=== PATIENT | male | born 1990 | race Caucasian/White ===

== ENCOUNTER 2018-02-25 02:15 | Observation (INO) | payer OTHER, SELFPAY ==
[2018-02-25] MEDS ORDERED: MORPHINE 4 MG/ML SYR ONE ×2 (02:43→05:33)
[2018-02-25] MEDS ORDERED: NA CHLORIDE 0.9% 1,000 ML ONE (02:44)
[2018-02-25] MEDS ORDERED: ONDANSETRON 4 MG/2 ML VIAL ONE ×2 (02:44→05:27)
[2018-02-25] MEDS ORDERED: PANTOPRAZOLE 40 MG INJ ONE (02:44)
[2018-02-25 03:30] LABS: Absolute Lymphocytes (CBC) 1.1 K/uL (0.7-4.9); Absolute Monocytes 0.4 K/uL (0.1-1.3); Absolute Neutrophil 11.8 K/uL (1.8-8.0); Basophils % 0.5 % (0-1.3); Eosinophils % 0.1 % (0-4.4); Hematocrit 40.9 % (39.6-49.0); Lymphocytes % 8.4 % (15.3-44.8); MCH 34.5 pg (27.0-35.0); MCV 96.9 fL (80-100); MPV 7.8 fL (7.6-11.3); Monocytes % 3.1 % (3.3-12.3); RBC Red Blood Cell Count 4.22 M/uL (4.33-5.43)
[2018-02-25 03:31] LABS: Protime INR 1.18
[2018-02-25 03:50] LABS: ALT/SGPT 24 U/L (12-78); AST/SGOT 14 U/L (15-37); Albumin 4.7 g/dL (3.4-5.0); Alkaline Phosphatase 54 U/L (45-117); BUN Blood Urea Nitrogen 16 mg/dL (7-18); Bicarbonate 25 mmol/L (21-32); Bilirubin Direct 0.2 mg/dL (0-0.2); Bilirubin Total 0.6 mg/dL (0.2-1.0); Glucose Level 195 mg/dL (74-106); Lipase 72 U/L (73-393); Magnesium 1.9 mg/dL (1.8-2.4); NT PRO-BNP 21 pg/mL (<125); Potassium 3.4 mmol/L (3.5-5.1); Protein, Total 8.4 g/dL (6.4-8.2); Sodium Level 141 mmol/L (136-145); Troponin (Emerg Dept Use Only) < 0.02 ng/mL (0.0-0.045)
[2018-02-25] MEDS ORDERED: NS KCL 20MEQ 1,000 ML IV ONE (04:39)
[2018-02-25 05:08] LABS: Barbiturates NEGATIVE (NEGATIVE); Benzodiazepines NEGATIVE (NEGATIVE); Cocaine NEGATIVE (NEGATIVE); METHAMPHETAM NEGATIVE (NEGATIVE); Methadone NEGATIVE (NEGATIVE); Opiates POSITIVE (NEGATIVE); Phencyclidine NEGATIVE (NEGATIVE); THC Cannibis POSITIVE (NEGATIVE)
[2018-02-25 05:28] LABS: Blood Morphology Comment NOT SEEN (NOT SEEN); Platelet Estimate ADEQ
--- NOTE | 2018-02-25 06:03 | EDPHYS ---
Physician Documentation [facility] Name: Pratik Seth Age: 28 yrs Sex: Male : 1990 Arrival Date: 02/25/2018 Time: 02:16 Bed 15 Private MD: ED Physician Hever Ware HPI: 02/25 02:31 This 28 yrs old Male presents to ER via Ambulatory with complaints of Chest rosie Pain, Vomiting. 02:31 The patient or guardian reports chest pain that is located primarily in the anterior rosie chest wall, bilaterally. Historical: - Allergies: 02:53 Naproxen; cc3 - Home Meds: 02:53 None [Active]; cc3 - PMHx: 02:53 Anxiety; Back pain; Kidney stones; cc3 - PSHx: 02:53 Appendectomy; cc3 - Immunization history:: Adult Immunizations not up to date. - Social history:: Smoking status: Patient uses tobacco products, cigars. - Family history:: not pertinent. - Ebola Screening: : No symptoms or risks identified at this time. ROS: 02:31 Constitutional: Negative for fever, chills, and weight loss, Eyes: Negative for injury, rosie pain, redness, and discharge, ENT: Negative for injury, pain, and discharge, Neck: Negative for injury, pain, and swelling, Respiratory: Negative for shortness of breath, cough, wheezing, and pleuritic chest pain, Back: Negative for injury and pain, : Negative for injury, bleeding, discharge, and swelling, MS/Extremity: Negative for injury and deformity, Skin: Negative for injury, rash, and discoloration, Neuro: Negative for headache, weakness, numbness, tingling, and seizure, Psych: Negative for depression, anxiety, suicide ideation, homicidal ideation, and hallucinations, Allergy/Immunology: Negative for hives, rash, and allergies, Endocrine: Negative for neck swelling, polydipsia, polyuria, polyphagia, and marked weight changes, Hematologic/Lymphatic: Negative for swollen nodes, abnormal bleeding, and unusual bruising. 02:31 Cardiovascular: Positive for 02:31 Respiratory: Positive for cough. 02:31 Abdomen/GI: Positive for abdominal pain, nausea and vomiting, of the epigastric area, right upper quadrant and left upper quadrant. Exam: 02:31 Constitutional: This is a well developed, well nourished patient who is awake, alert, rosie and in no acute distress. Head/Face: Normocephalic, atraumatic. Eyes: Pupils equal round and reactive to light, extra-ocular motions intact. Lids and lashes normal. Conjunctiva and sclera are non-icteric and not injected. Cornea within normal limits. Periorbital areas with no swelling, redness, or edema. ENT: Nares patent. No nasal discharge, no septal abnormalities noted. Tympanic membranes are normal and external auditory canals are clear. Oropharynx with no redness, swelling, or masses, exudates, or evidence of obstruction, uvula midline. Mucous membranes moist. Neck: Trachea midline, no thyromegaly or masses palpated, and no cervical lymphadenopathy. Supple, full range of motion without nuchal rigidity, or vertebral point tenderness. No Meningismus. Chest/axilla: Normal chest wall appearance and motion. Nontender with no deformity. No lesions are appreciated. Cardiovascular: Regular rate and rhythm with a normal S1 and S2. No gallops, murmurs, or rubs. Normal PMI, no JVD. No pulse deficits. Respiratory: Lungs have equal breath sounds bilaterally, clear to auscultation and percussion. No rales, rhonchi or wheezes noted. No increased work of breathing, no retractions or nasal flaring. Back: No spinal tenderness. No costovertebral tenderness. Full range of motion. Male : Normal genitalia with no discharge or lesions. Skin: Warm, dry with normal turgor. Normal color with no rashes, no lesions, and no evidence of cellulitis. MS/ Extremity: Pulses equal, no cyanosis. Neurovascular intact. Full, normal range of motion. Neuro: Awake and alert, GCS 15, oriented to person, place, time, and situation. Cranial nerves II-XII grossly intact. Motor strength 5/5 in all extremities. Sensory grossly intact. Cerebellar exam normal. Normal gait. Psych: Awake, alert, with orientation to person, place and time. Behavior, mood, and affect are within normal limits. 02:31 Abdomen/GI: Inspection: abdomen appears normal, Bowel sounds: normal, Palpation: mild abdominal tenderness, moderate abdominal tenderness, in the epigastric area, right upper quadrant and left upper quadrant. Vital Signs: 02:18 BP 160 / 122; Pulse 96; Resp 21 S; Temp 98.8(O); Pulse Ox 98% on R/A; Weight 63.5 kg; cc3 Height 5 ft. 11 in. (180.34 cm); Pain 03/02; 03:48 BP 130 / 83 LA Supine (auto/reg); Pulse 66 MON; Resp 20 S; Pulse Ox 97% on R/A; Pain ds4 12/31; 04:30 BP 147 / 87; Pulse 86; Resp 18 S; Pulse Ox 100% on R/A; cc3 05:40 BP 160 / 96; Pulse 84; Resp 19 S; Pulse Ox 100% on R/A; cc3 06:05 BP 154 / 98; Pulse 66; Resp 19 S; Pulse Ox 99% on R/A; cc3 02:18 Body Mass Index 19.52 (63.50 kg, 180.34 cm) cc3 MDM: 02:25 Patient medically screened. [facility] 02:33 Data reviewed: vital signs, nurses notes, lab test result(s), EKG, radiologic studies, [facility] CT scan, plain films. 02/25 02:30 Order name: Basic Metabolic Panel; Complete Time: 04:21 rosie 02/25 02:30 Order name: CBC with Diff; Complete Time: 05:57 rosie 02/25 02:30 Order name: LFT's; Complete Time: 04:21 rosie 02/25 02:30 Order name: Magnesium; Complete Time: 04:21 rosie 02/25 02:30 Order name: NT PRO-BNP; Complete Time: 04:21 orsie 02/25 02:30 Order name: PT-INR; Complete Time: 04:21 rosie 02/25 02:30 Order name: Troponin (emerg Dept Use Only); Complete Time: 04:21 rosie 02/25 02:30 Order name: Lipase; Complete Time: 04:21 rosie 02/25 02:33 Order name: UDS; Complete Time: 05:57 rosie 02/25 03:32 Order name: Manual Differential; Complete Time: 05:57 EDMS 02/25 04:42 Order name: Urine Dipstick--Ancillary (enter results) ds4 02/25 06:08 Order name: CBC with Automated Diff EDMS 02/25 06:08 Order name: CBC with Automated Diff EDMS 02/25 06:08 Order name: Comprehensive Metabolic Panel EDMS 02/25 02:30 Order name: XRAY Chest (1 view) [facility] 02/25 02:30 Order name: EKG; Complete Time: 02:31 [facility] 02/25 02:30 Order name: Cardiac monitoring; Complete Time: 02:48 [facility] 02/25 02:31 Order name: CT Abd/Pelvis - W/Contrast [facility] 02/25 05:57 Order name: US Abdomen Limited [facility] 02/25 06:05 Order name: CONS Physician Consult [facility] 02/25 06:08 Order name: NPO [facility] 02/25 06:08 Order name: Comprehensive Metabolic Panel [facility] 02/25 06:08 Order name: Blood Culture [facility] 02/25 02:30 Order name: EKG - Nurse/Tech; Complete Time: 02:34 [facility] 02/25 02:30 Order name: IV Saline Lock; Complete Time: 02:49 [facility] 02/25 02:30 Order name: Labs collected and sent; Complete Time: 02:49 [facility] 02/25 02:30 Order name: O2 Per Protocol; Complete Time: 02:49 [facility] 02/25 02:30 Order name: O2 Sat Monitoring; Complete Time: 02:50 [facility] Administered Medications: 02:35 Drug: NS 0.9% 1000 ml Route: IV; Rate: 1 bolus; Site: right antecubital; cc3 04:00 Follow up: Response: No adverse reaction; IV Status: Completed infusion; IV Intake: cc3 1000ml 02:38 Drug: Zofran 4 mg Route: IVP; Site: right antecubital; cc3 03:50 Follow up: Response: No adverse reaction; Nausea is decreased; Vomiting decreased cc3 02:41 Drug: morphine 4 mg Route: IVP; Site: right antecubital; cc3 03:51 Follow up: Response: No adverse reaction; Pain is decreased cc3 02:44 Drug: ProTONIX 40 mg Route: IVP; Site: right antecubital; cc3 03:51 Follow up: Response: No adverse reaction; Pain is decreased cc3 04:30 Drug: NS 0.9% with KCl 20 mEq/L 1000 ml Route: IV; Rate: 125 ml/hr; Site: right cc3 antecubital; 06:30 Follow up: Response: No adverse reaction; IV Status: Infusion continued upon admission cc3 05:23 Drug: Zofran 4 mg Route: IVP; Site: right antecubital; cc3 05:55 Follow up: Response: No adverse reaction; Nausea is decreased; Vomiting decreased cc3 05:27 Drug: morphine 4 mg Route: IVP; Site: right antecubital; cc3 05:55 Follow up: Response: No adverse reaction; Pain is decreased cc3 Disposition: 02/25/18 06:02 Hospitalization ordered by Suma Benjamin for Observation. Preliminary diagnosis are Chest pain, unspecified, Abdominal tenderness - intractable, Vomiting. - Bed requested for Telemetry/MedSurg (observation). - Status is Observation. cc3 - Condition is Stable. - Problem is new. - Symptoms have improved. UTI on Admission? No Signatures: Dispatcher [employer] EDMS Hever Ware MD MD cha Solis, Maria ms Cordel, Charlene 3 Corrections: (The following items were deleted from the chart) 02:55 02:18 Social history: Smoking status: unknown 3 3 04:26 02:53 PSHx: None; 3 3 05:46 02:53 Allergies: NKDA; 3 cc3 05:46 02:53 Allergies: Naproxen [Inactive]; 3 cc3 06:13 06:02 Hospitalization Ordered by Suma Benjamin MD for Observation. Preliminary ms diagnosis is Chest pain, unspecified; Abdominal tenderness - intractable; Vomiting. Bed requested for Telemetry/MedSurg (observation). Status is Observation. Condition is Stable. Problem is new. Symptoms have improved. UTI on Admission? No. [facility] 06:44 06:13 02/25/2018 06:02 Hospitalization Ordered by Suma Benjamin MD for Observation. 3 Preliminary diagnosis is Chest pain, unspecified; Abdominal tenderness - intractable; Vomiting. Bed requested for Telemetry/MedSurg (observation). Status is Observation. Condition is Stable. Problem is new. Symptoms have improved. UTI on Admission? No. ms
--- NOTE | 2018-02-25 06:03 | ER ---
Nurse's Notes [facility] Name: Pratik Seth Age: 28 yrs Sex: Male : 1990 Arrival Date: 02/25/2018 Time: 02:16 Bed 15 Private MD: Diagnosis: Chest pain, unspecified;Abdominal tenderness-intractable;Vomiting Presentation: 02/25 02:18 Presenting complaint: Patient states: chest pain and vomiting since 3 hours back after cc3 eating pork chop. Transition of care: patient was not received from another setting of care. Onset of symptoms was February 24, 2018. Risk Assessment: Do you want to hurt yourself or someone else? Patient reports no desire to harm self or others. Initial Sepsis Screen: Does the patient meet any 2 criteria? No. Patient's initial sepsis screen is negative. Does the patient have a suspected source of infection? No. Patient's initial sepsis screen is negative. Care prior to arrival: None. 02:18 Method Of Arrival: Ambulatory cc3 02:18 Acuity: FLORIAN 3 cc3 Triage Assessment: 02:18 General: Appears distressed, uncomfortable, Behavior is calm, cooperative, appropriate cc3 for age. Pain: Complains of pain in left upper quadrant and right upper quadrant and epigastric area Pain currently is 10 out of 10 on a pain scale. Quality of pain is described as aching, Pain began 3 hours ago prior to consult. EENT: No signs and/or symptoms were reported regarding the EENT system. Neuro: Level of Consciousness is awake, alert, obeys commands, Oriented to person, place, time, situation, Appropriate for age. Cardiovascular: Reports chest pain, since 3 hours ago prior to consult. Respiratory: Airway is patent Respiratory effort is even, unlabored, Respiratory pattern is regular, symmetrical. GI: Reports upper abdominal pain, cramping, epigastric pain, vomiting, since 3 hours back prior to consult. : No signs and/or symptoms were reported regarding the genitourinary system. Derm: No signs and/or symptoms reported regarding the dermatologic system. Musculoskeletal: Circulation, motion, and sensation intact. Range of motion: intact in all extremities. Historical: - Allergies: 02:53 Naproxen; cc3 - Home Meds: 02:53 None [Active]; cc3 - PMHx: 02:53 Anxiety; Back pain; Kidney stones; cc3 - PSHx: 02:53 Appendectomy; cc3 - Immunization history:: Adult Immunizations not up to date. - Social history:: Smoking status: Patient uses tobacco products, cigars. - Family history:: not pertinent. - Ebola Screening: : No symptoms or risks identified at this time. Screenin:18 Abuse screen: Denies threats or abuse. Denies injuries from another. Nutritional cc3 screening: No deficits noted. Tuberculosis screening: No symptoms or risk factors identified. Fall Risk Ambulatory Aid- None/Bed Rest/Nurse Assist (0 pts). Gait- Normal/Bed Rest/Wheelchair (0 pts) Mental Status- Oriented to own ability (0 pts). Assessment: 02:20 General: see triage note. cc3 02:20 Pain: Pain does not radiate. cc3 03:30 Reassessment: Patient appears in no apparent distress at this time. Patient and/or cc3 family updated on plan of care and expected duration. Pain level reassessed. Patient is alert, oriented x 3, equal unlabored respirations, skin warm/dry/pink. Patient still cannot take the oral contrast and feels vomiting whenever he tries to, informed Dr. Ware and he said no need to give the oral contrast and just do the plain CT scan of the abdomen. Informed Dr. Ware regarding the patient's ECG SV rhythm and he said he saw the 12-L ECG that was done for the patient and he said the patient's fine. Informed charge nurse Rupa regarding Dr. Ware's plan for CT scan abdomen without giving the oral contrast and charge nurse Rupa informed the CT scan department. 04:00 Reassessment: Patient appears in no apparent distress at this time. Patient and/or cc3 family updated on plan of care and expected duration. Pain level reassessed. Patient is alert, oriented x 3, equal unlabored respirations, skin warm/dry/pink. Patient taken by social service technician for CT scan abdomen/pelvis procedure. 04:20 Reassessment: Patient appears in no apparent distress at this time. Patient and/or cc3 family updated on plan of care and expected duration. Pain level reassessed. Patient is alert, oriented x 3, equal unlabored respirations, skin warm/dry/pink. Patient came back from CT scan department, CT scan abdomen/pelvis done as ordered, awaiting for final report. 05:39 Reassessment: Patient appears in no apparent distress at this time. Patient and/or cc3 family updated on plan of care and expected duration. Pain level reassessed. Patient is alert, oriented x 3, equal unlabored respirations, skin warm/dry/pink. 06:00 Reassessment: Dr. Walker came and assessed the patient. cc3 06:05 Reassessment: Patient for admission as a case of chest pain unspecified, admission cc3 process ongoing. 06:30 Reassessment: Bed assigned in room 203, called extension [id number] and report handed over to cc3 RN Lilo Avila for continuity of care and management. 06:35 Reassessment: Patient appears in no apparent distress at this time. Patient and/or cc3 family updated on plan of care and expected duration. Pain level reassessed. Patient is alert, oriented x 3, equal unlabored respirations, skin warm/dry/pink. Patient left ER for admission vitally stable by wheelchair escorted by coroner forensic techniciancale Wilson. Vital Signs: 02:18 BP 160 / 122; Pulse 96; Resp 21 S; Temp 98.8(O); Pulse Ox 98% on R/A; Weight 63.5 kg; cc3 Height 5 ft. 11 in. (180.34 cm); Pain 10/10; 03:48 BP 130 / 83 LA Supine (auto/reg); Pulse 66 MON; Resp 20 S; Pulse Ox 97% on R/A; Pain ds4 8/10; 04:30 BP 147 / 87; Pulse 86; Resp 18 S; Pulse Ox 100% on R/A; cc3 05:40 BP 160 / 96; Pulse 84; Resp 19 S; Pulse Ox 100% on R/A; cc3 06:05 BP 154 / 98; Pulse 66; Resp 19 S; Pulse Ox 99% on R/A; cc3 02:18 Body Mass Index 19.52 (63.50 kg, 180.34 cm) 3 ED Course: 02:16 Patient arrived in ED. do 02:18 Arm band placed on right wrist. cc3 02:18 Patient has correct armband on for positive identification. Bed in low position. Call cc3 light in reach. Side rails up X 1. library monitor on. Pulse ox on. NIBP on. 02:20 Patient maintains SpO2 saturation greater than 95% on room air. cc3 02:22 Ya Murillo is Primary Nurse. cc3 02:24 Triage completed. cc3 02:25 Hever Ware MD is Attending Physician. rosie 02:25 Inserted saline lock: 20 gauge in right antecubital area, using aseptic technique. cc3 Blood collected. 02:50 Lipase Sent. ds4 02:50 Basic Metabolic Panel Sent. ds4 02:50 CBC with Diff Sent. ds4 02:50 LFT's Sent. ds4 02:50 Magnesium Sent. ds4 02:50 NT PRO-BNP Sent. ds4 02:51 PT-INR Sent. ds4 02:51 Troponin (emerg Dept Use Only) Sent. ds4 02:57 XRAY Chest (1 view) In Process Unspecified. EDMS 03:19 Lipase Sent. ds4 03:19 Basic Metabolic Panel Sent. ds4 03:19 CBC with Diff Sent. ds4 03:19 LFT's Sent. ds4 03:19 Magnesium Sent. ds4 03:20 NT PRO-BNP Sent. ds4 03:20 PT-INR Sent. ds4 03:20 Troponin (emerg Dept Use Only) Sent. ds4 03:34 Radiology exam delayed due to lab results not completed at this time. (BUN/Creatinine). jg6 03:34 Radiology exam delayed due to Patient has been unable to drink oral contrast due to jg6 severe nauseousness. Has been given medication for nausea but still unable to drink oral contrast. Dr. Ware has advised to complete exam using only IV contrast at this time. 03:45 Lipase Sent. ds4 03:45 Troponin (emerg Dept Use Only) Sent. ds4 03:46 NT PRO-BNP Sent. ds4 03:46 Magnesium Sent. ds4 03:46 LFT's Sent. ds4 03:46 Basic Metabolic Panel Sent. ds4 03:46 CBC with Diff Sent. ds4 03:49 Radiology exam delayed due to lab results not completed at this time. (BUN/Creatinine). jg6 04:[address] via wheelchair. kw1 04:11 CT completed. Patient tolerated procedure well. Patient moved back from CT. kw1 04:12 CT Abd/Pelvis - W/Contrast In Process Unspecified. EDMS 04:42 UDS Sent. ds4 04:47 Urine Dipstick--Ancillary (enter results) Sent. ds4 06:01 Suma Benjamin MD is Hospitalizing Provider. rosie 06:35 No provider procedures requiring assistance completed. Patient admitted, IV remains in cc3 place. Administered Medications: 02:35 Drug: NS 0.9% 1000 ml Route: IV; Rate: 1 bolus; Site: right antecubital; cc3 04:00 Follow up: Response: No adverse reaction; IV Status: Completed infusion; IV Intake: cc3 1000ml 02:38 Drug: Zofran 4 mg Route: IVP; Site: right antecubital; cc3 03:50 Follow up: Response: No adverse reaction; Nausea is decreased; Vomiting decreased cc3 02:41 Drug: morphine 4 mg Route: IVP; Site: right antecubital; cc3 03:51 Follow up: Response: No adverse reaction; Pain is decreased cc3 02:44 Drug: ProTONIX 40 mg Route: IVP; Site: right antecubital; cc3 03:51 Follow up: Response: No adverse reaction; Pain is decreased cc3 04:30 Drug: NS 0.9% with KCl 20 mEq/L 1000 ml Route: IV; Rate: 125 ml/hr; Site: right cc3 antecubital; 06:30 Follow up: Response: No adverse reaction; IV Status: Infusion continued upon admission cc3 05:23 Drug: Zofran 4 mg Route: IVP; Site: right antecubital; cc3 05:55 Follow up: Response: No adverse reaction; Nausea is decreased; Vomiting decreased cc3 05:27 Drug: morphine 4 mg Route: IVP; Site: right antecubital; cc3 05:55 Follow up: Response: No adverse reaction; Pain is decreased cc3 Intake: 04:00 IV: 1000ml; Total: 1000ml. cc3 Outcome: 06:02 Decision to Hospitalize by Provider. rosie 06:35 Admitted to Med/surg accompanied by tech, via wheelchair, room 203, with chart, Report cc3 called to LENNY Avila 06:35 Condition: stable 06:35 Instructed on the need for admit. 06:44 Patient left the ED. cc3 Signatures: Dispatcher [employer] Hever Macdonald MD MD cha Swanson, Donovan ds4 Amy Colunga Kimberly kw1 Ya Murillo cc3 Analisa Vicente [email or web address] Corrections: (The following items were deleted from the chart) 02:26 02:18 BP 160 / 122; Pulse 96bpm; Resp 21bpm; Spontaneous; Pulse Ox 98% RA; 63.5 kg; cc3 Height 5 ft. 11 in.; BMI: 19.5; cc3 02:55 02:18 Social history: Smoking status: unknown [facility] [email or web address] 04:06 03:25 Reassessment: Patient appears in no apparent distress at this time. Patient cc3 and/or family updated on plan of care and expected duration. Pain level reassessed. Patient is alert, oriented x 3, equal unlabored respirations, skin warm/dry/pink. Patient still cannot take the oral contrast and feels vomiting whenever he tries to, informed Dr. Ware and he said no need to give the oral contrast and just do the plain CT scan of the abdomen. Informed Dr. Ware regarding the patient's ECG SV rhythm and he said he saw the 12-L ECG that was done for the patient and he said the patient's fine. Informed charge nurse Rupa regarding Dr. Ware's plan for CT scan abdomen without giving the oral contrast and charge nurse Rupa informed the CT scan department. 3 04: 02:53 PSHx: None; [facility] [email or web address] 05:46 02:53 Allergies: NKDA; 3 3 05:46 02:53 Allergies: Naproxen [Inactive]; 3 3
[2018-02-25] MEDS ORDERED: SODIUM CHLORIDE 0.9% 10ML INJ IV PRN (06:05)
[2018-02-25 06:12] LABS: Urine Blood TRACE (NEG); Urine Glucose NEGATIVE (NEG); Urine Protein 1+ (NEG); Urine Specific Gravity 1.015 (1.005-1.030); Urine pH 7.5 (5.0-7.0)
--- NOTE | 2018-02-25 06:15 | P.HP ---
Certification for Inpatient Patient admitted to: Observation With expected LOS: <2 Midnights Practitioner: I am a practitioner with admitting privileges, knowledge of patient current condition, hospital course, and medical plan of care. Services: Services provided to patient in accordance with Admission requirements found in Title 42 Section 412.3 of the Code of Federal Regulations Patient History Date of Service: 02/25/18 Reason for admission: Abdominal pain History of Present Illness: Mr Seth is a 28-year-old male who came to ER complaining of severe abdominal pain. The pain is located in epigastric area, is 10/10 of intensity, associated subjective fever, nausea and vomiting. He also states that has had diarrhea a couple of times at home. He symptoms started last night after he had dinner. He denied any blood in stools or his vomiting. The pain is constant unknown not radiate anywhere. Lab work remarkable for leukocytosis 13.5 K and bands 2% . CT abdomen and pelvis shows no acute abnormalities. He has history of appendectomy in the past. UA shows no sign of acute infection. Allergies naproxen Allergy (Unverified 09/27/15 23:48) Unknown Home medications list reviewed: Yes Home Medications: Ciprofloxacin HCl [Cipro 500 MG Tablet] 500 mg PO BID #14 tablet 03/11/15 Metronidazole 500 mg PO TID #21 tablet 03/11/15 - Past Medical/Surgical History Diabetic: No -: wrist fx -: TIA with aphasia (12/05) -: R wrist fx -: appendectomy - Family History Mother -: Cancer Notes: lung cx - Social History Smoking Status: Current every day smoker Counseled patient to stop smoking for: less than 10 minutes Alcohol use: Yes CD- Drugs: No Caffeine use: Yes Place of Residence: Home Review of Systems 10-point ROS is otherwise unremarkable Physical Examination - Physical Exam General: Alert, Moderate distress (Due to abdominal pain) HEENT: Atraumatic, PERRLA, Mucous membr. moist/pink, EOMI, Sclerae nonicteric Neck: Supple, 2+ carotid pulse no bruit, No LAD, Without JVD or thyroid abnormality Respiratory: Clear to auscultation bilaterally, Normal air movement Cardiovascular: Regular rate/rhythm, Normal S1 S2 Gastrointestinal: Hypoactive, Tenderness (Epigastric area) Musculoskeletal: No tenderness Integumentary: No rashes Neurological: Normal speech, Normal strength at 5/5 x4 extr, Normal tone, Normal affect Lymphatics: No axilla or inguinal lymphadenopathy - Studies Laboratory Data (last 24 hrs) 02/25/18 03:10: PT 13.9 H, INR 1.18 02/25/18 03:10: WBC 13.5 H, Hgb 14.6, Hct 40.9, Plt Count 375 02/25/18 03:10: Sodium 141, Potassium 3.4 L, BUN 16, Creatinine 1.00, Glucose 195 H, Magnesium 1.9, Total Bilirubin 0.6, AST 14 L, ALT 24, Alkaline Phosphatase 54, Lipase 72 L Assessment and Plan - Problems (Diagnosis) (1) Abdominal pain Onset Date: 03/11/15 Current Visit: No Status: Acute Qualifiers: Abdominal location: epigastric Qualified Code(s): R10.13 - Epigastric pain (2) Nausea & vomiting Onset Date: 03/11/15 Current Visit: No Status: Acute Qualifiers: Vomiting type: unspecified Vomiting Intractability: intractable Qualified Code(s): R11.2 - Nausea with vomiting, unspecified - Plan The patient will be admitted to the hospital due to severe epigastric pain associated with nausea vomiting. He has leukocytosis with bandemia. However CT scan of abdomen and pelvis shows no acute abnormality. Will admit the patient for pain control, will order an abdominal ultrasound, consult surgery team for evaluation and recommendation. - Advance Directives Does patient have a Living Will: No Does patient have a Durable POA for Healthcare: No - Code Status/Comfort Care Code Status Assessed: Yes Code Status: Full Code
[2018-02-25] MEDS: NA CHLORIDE 0.9% 1,000 ML IV SCH ×2 (07:00→15:50)
[2018-02-25 07:03] VITALS: BMI 15.3
[2018-02-25] MEDS: PANTOPRAZOLE 40 MG INJ IVP SCH (08:21)
--- NOTE | 2018-02-25 08:38 | RAD REPORT ---
EXAM DESCRIPTION: CT - Abdomen Pelvis W Contrast - 02/25/2018 6:43 am CLINICAL HISTORY: Abdominal pain. And vomiting for 3 hours. COMPARISON: 2017 TECHNIQUE: Computed axial tomography of the abdomen and pelvis was obtained. 100 cc Isovue-300 is ad ministered intravenously. Oral contrast was given.Preliminary report generated by [employer] and reviewed prior to dictation All CT scans are performed using dose optimization technique as appropriate and may include automated exposure control or mA/KV adjustment according to patient size. FINDINGS: The liver, spleen, pancreas, adrenals and kidneys appear unremarkable. There is no evidence of diverticulitis The appendix is not seen IMPRESSION: No acute abnormality displayed
--- NOTE | 2018-02-25 08:38 | RAD REPORT ---
EXAM DESCRIPTION: Mere Single View02/25/2018 2:57 am CLINICAL HISTORY: Chest pain COMPARISON: 2014 FINDINGS: The lungs appear clear of acute infiltrate. The heart is normal size IMPRESSION: No acute abnormalities displayed
--- NOTE | 2018-02-25 08:45 | RAD REPORT ---
EXAM DESCRIPTION: US - Abdomen Exam Limited - 02/25/2018 7:08 am CLINICAL HISTORY: Abdominal pain. COMPARISON: None. FINDINGS: The gallbladder wall is not thickened. A gallstone is not seen. The biliary tree is normal caliber. IMPRESSION: Unremarkable gallbladder ultrasound.
[2018-02-25] MEDS ORDERED: METRONIDAZOLE 500mg IVPB 500 MG/100 ML BAG IV SCH (09:00)
[2018-02-25] MEDS ORDERED: CIPROFLOXACIN 400mg IV 400 MG/200 ML BAG IV SCH (09:00)
[2018-02-25] MEDS ORDERED: INFLUENZA VACCINE (for 3y+) 0.5 ML DOSE IMVAC ONE ×2 (11:00→22:18)
[2018-02-25] MEDS: MORPHINE 2 MG/ML SYR IV PRN ×3 (11:56→21:54)
[2018-02-25] MEDS: ONDANSETRON 4 MG/2 ML VIAL IV PRN ×2 (11:57→17:40)
[2018-02-25] MEDS ORDERED: MORPHINE 4 MG/ML SYR IV PRN (13:21)
--- NOTE | 2018-02-25 13:35 | P.CNS ---
Date of Consult: 02/25/18 PC: This 28-year-old male presents emergency room with severe abdominal pain for diagnosis and treatment. HPC: The patient states that the pain began yesterday. Located the middle portion of his abdomen. Very severe. Cause him to have dry heaves and vomiting. No diarrhea. PMH: Negative PSHx: Negative SOC: Allergic to Naprosyn SYS REVIEW: No cough, wheeze, shortness of breath. No chest pain or palpitations. No urinary complaints O/E awake alert very uncomfortable looking at the moment, vital signs are stable HEENT: Within normal limit Chest: Chest movement is equal bilaterally ABD: Abdomen is soft, nontender, no guarding. Patient however describes his abdomen as sore during exam. LOCO: Intact, no heel tap tenderness DATA: White cell count mildly elevate IMPRESSION: Abdominal pain, possible enteritis PLAN: This patient is not have a surgical abdomen at this time. I will increase his pain medicine as the patient is generally uncomfortable. Has received some antibiotics, will leave dosing to hospitalist, may benefit from p.o. antibiotics. Will follow with you.
[2018-02-25] MEDS ORDERED: TRAMADOL HCL 50 MG TAB PO PRN (15:38)
[2018-02-25] MEDS: HYDROCODONE/APAP 7.5/325 MG TAB PO PRN (15:49)
--- NOTE | 2018-02-25 16:25 | P.PN ---
Subjective Date of Service: 02/25/18 Primary Care Provider: None Chief Complaint: Abdominal pain Subjective: Other (Patient is slightly improved. Still with abdominal pain.) Physical Examination - Vital Signs Temperature: 99.2 F Blood Pressure: 117/73 Pulse: 77 Respirations: 18 Pulse Ox (%): 99 - Physical Exam General: Alert, In no apparent distress, Oriented x3, Cooperative HEENT: Atraumatic Neck: Supple Respiratory: Clear to auscultation bilaterally, Normal air movement Cardiovascular: Normal pulses, Regular rate/rhythm Gastrointestinal: Normal bowel sounds, Soft and benign, Non-distended, No masses , No rebound, No guarding, Tenderness (Mild tenderness to the epigastric region) Musculoskeletal: No erythema, No tenderness, No warmth Integumentary: No tenderness/swelling, No erythema, No warmth, No cyanosis Neurological: Normal speech, Normal strength at 5/5 x4 extr, Normal tone, Normal affect - Studies Laboratory Data (last 24 hrs) 02/25/18 03:10: PT 13.9 H, INR 1.18 02/25/18 03:10: WBC 13.5 H, Hgb 14.6, Hct 40.9, Plt Count 375 02/25/18 03:10: Sodium 141, Potassium 3.4 L, BUN 16, Creatinine 1.00, Glucose 195 H, Magnesium 1.9, Total Bilirubin 0.6, AST 14 L, ALT 24, Alkaline Phosphatase 54, Lipase 72 L Medications List Reviewed: Yes Assessment & Plan Discharge Plan: Home Plan to discharge in: 24 Hours Physician Review Additional Text: Impression: Nausea, vomiting and epigastric pain likely enteritis Positive drug screen for THC Plan: Nausea, vomiting and epigastric pain likely enteritis Positive drug screen for THC Will continue monitor closely. Will provide medication for nausea and pain. Will advance diet to clears. If more stable will advance diet to soft. Surgery consulted. Case discussed with surgery. No surgical intervention required. Will continue with Cipro and Flagyl. Will provide Protonix. Will reassess tomorrow. THC cessation education addressed in detail. Time Spent Managing Pts Care (In Minutes): 55
[2018-02-25] MEDS: METRONIDAZOLE 500mg IVPB 500 MG/100 ML BAG IV SCH (17:40)
[2018-02-25] MEDS ORDERED: POTASSIUM CL SA 10 MEQ TAB PO ONE (21:00)
[2018-02-25] MEDS: CIPROFLOXACIN 400mg IV 400 MG/200 ML BAG IV SCH (21:53)
[2018-02-25 23:10] VITALS: O2SAT 100
[2018-02-26] MEDS: METRONIDAZOLE 500mg IVPB 500 MG/100 ML BAG IV SCH ×3 (00:27→16:28)
[2018-02-26] MEDS: ONDANSETRON 4 MG/2 ML VIAL IV PRN ×3 (03:17→21:45)
[2018-02-26] MEDS: HYDROCODONE/APAP 7.5/325 MG TAB PO PRN (03:18)
[2018-02-26] MEDS: NA CHLORIDE 0.9% 1,000 ML IV SCH (03:18)
[2018-02-26 06:14] LABS: Absolute Lymphocytes (CBC) 2.1 K/uL (0.7-4.9); Absolute Monocytes 0.8 K/uL (0.1-1.3); Absolute Neutrophil 6.1 K/uL (1.8-8.0); Basophils % 0.6 % (0-1.3); Eosinophils % 1.8 % (0-4.4); Hematocrit 35.7 % (39.6-49.0); Lymphocytes % 22.3 % (15.3-44.8); MCH 34.8 pg (27.0-35.0); MCV 98.3 fL (80-100); Monocytes % 8.7 % (3.3-12.3); RBC Red Blood Cell Count 3.63 M/uL (4.33-5.43)
[2018-02-26 06:39] LABS: Albumin 3.6 g/dL (3.4-5.0); Bilirubin Total 0.6 mg/dL (0.2-1.0); Magnesium 2.2 mg/dL (1.8-2.4); Potassium 3.8 mmol/L (3.5-5.1); Protein, Total 6.6 g/dL (6.4-8.2)
--- NOTE | 2018-02-26 07:53 | EKG ---
Test Date: 2018-02-25 Test Time: 02:22:35 Room Cleaner: EVER MEASUREMENT RESULTS: Intervals: Rate: 83 ME: 142 QRSD: 80 QT: 372 QTc: 437 [place]: P: 74 ME: 142 QRS: 89 T: 76 INTERPRETIVE STATEMENTS: Normal sinus rhythm with sinus arrhythmia Normal ECG Compared to ECG 12/03/2014 07:23:49 Sinus bradycardia no longer present Atrial premature complex(es) no longer present Electronically Signed On 02-26-18 07:49:11 CDT by Rciky Pate
[2018-02-26] MEDS: CIPROFLOXACIN 400mg IV 400 MG/200 ML BAG IV SCH ×2 (08:04→21:46)
[2018-02-26] MEDS: PANTOPRAZOLE 40 MG INJ IVP SCH (08:04)
[2018-02-26] MEDS: MORPHINE 2 MG/ML SYR IV PRN ×3 (08:04→21:44)
--- NOTE | 2018-02-26 09:08 | P.PN ---
Subjective Date of Service: 02/26/18 Primary Care Provider: None Chief Complaint: Abdominal pain Subjective: Other (Patient improved. Pain to the abdomen is less. Patient tolerated clear liquids.) Physical Examination - Vital Signs Temperature: 98 F Blood Pressure: 125/62 Pulse: 58 Respirations: 18 Pulse Ox (%): 100 - Physical Exam General: Alert, In no apparent distress, Oriented x3, Cooperative HEENT: Atraumatic Neck: Supple Respiratory: Clear to auscultation bilaterally, Normal air movement Cardiovascular: Normal pulses, Regular rate/rhythm Gastrointestinal: Normal bowel sounds, Soft and benign, Non-distended, No masses , No rebound, No guarding, Tenderness (Pain to the epigastric region improved) Musculoskeletal: No erythema, No tenderness, No warmth Integumentary: No tenderness/swelling, No erythema, No warmth, No cyanosis Neurological: Normal speech, Normal strength at 5/5 x4 extr, Normal tone - Studies Medications List Reviewed: Yes Assessment & Plan Discharge Plan: Home Plan to discharge in: 24 Hours Physician Review Additional Text: Impression: Nausea, vomiting and epigastric pain likely enteritis Positive drug screen for THC Plan: Nausea, vomiting and epigastric pain likely enteritis Positive drug screen for THC Will advance diet to full liquid this morning. If improved will advance to soft. So far abdominal ultrasound and CT scan unremarkable. Case discussed with surgery yesterday. No surgical intervention required. Will continue with IV fluids, antibiotic therapy-Cipro and Flagyl. Patient also on Protonix. THC education cessation addressed in detail with the patient. Encourage ambulation. Anticipate discharge in the next 24 hr. Time Spent Managing Pts Care (In Minutes): 55
[2018-02-26] MEDS: NACHLORIDE 0.45% 1,000 ML IV SCH ×3 (10:00→21:46)
[2018-02-26] MEDS ORDERED: POTASSIUM CL SA 10 MEQ TAB PO ONE (14:00)
[2018-02-27] MEDS: METRONIDAZOLE 500mg IVPB 500 MG/100 ML BAG IV SCH ×2 (00:51→09:00)
[2018-02-27] MEDS: MORPHINE 2 MG/ML SYR IV PRN (04:25)
[2018-02-27] MEDS: ONDANSETRON 4 MG/2 ML VIAL IV PRN (04:25)
[2018-02-27] MEDS: NACHLORIDE 0.45% 1,000 ML IV SCH (05:58)
[2018-02-27 06:01] LABS: ALT/SGPT 18 U/L (12-78); AST/SGOT 12 U/L (15-37); Albumin 3.8 g/dL (3.4-5.0); Alkaline Phosphatase 44 U/L (45-117); BUN Blood Urea Nitrogen 5 mg/dL (7-18); Bicarbonate 29 mmol/L (21-32); Bilirubin Total 0.7 mg/dL (0.2-1.0); Glucose Level 92 mg/dL (74-106); Protein, Total 6.9 g/dL (6.4-8.2); Sodium Level 140 mmol/L (136-145)
[2018-02-27] MEDS ORDERED: PANTOPRAZOLE 40MG TABLET PO SCH (06:30)
[2018-02-27 07:48] LABS: Absolute Lymphocytes (CBC) 2.3 K/uL (0.7-4.9); Absolute Monocytes 0.7 K/uL (0.1-1.3); Basophils % 3.7 % (0-1.3); Eosinophils % 5.2 % (0-4.4); Hematocrit 39.2 % (39.6-49.0); Lymphocytes % 35.2 % (15.3-44.8); MCH 34.7 pg (27.0-35.0); MCV 98.4 fL (80-100); MPV 8.1 fL (7.6-11.3); Monocytes % 10.1 % (3.3-12.3); RBC Red Blood Cell Count 3.98 M/uL (4.33-5.43)
--- NOTE | 2018-02-27 08:06 | P.DS ---
Admission Date: 02/25/18 Discharge Date: 02/27/18 Primary Care Provider: Dr. Boyce Disposition: ROUTINE DISCHARGE Discharge Condition: GOOD Reason for Admission: Abdominal pain Consultations: Surgery-Dr. Devlin Procedures: CT scan: COMPARISON: 2016 TECHNIQUE: Computed axial tomography of the abdomen and pelvis was obtained. 100 cc Isovue-300 is administered intravenously. Oral contrast was given.Preliminary report generated by [employer] and reviewed prior to dictation All CT scans are performed using dose optimization technique as appropriate and may include automated exposure control or mA/KV adjustment according to patient size. FINDINGS: The liver, spleen, pancreas, adrenals and kidneys appear unremarkable. There is no evidence of diverticulitis The appendix is not seen IMPRESSION: No acute abnormality displayed Abdominal ultrasound: COMPARISON: None. FINDINGS: The gallbladder wall is not thickened. A gallstone is not seen. The biliary tree is normal caliber. IMPRESSION: Unremarkable gallbladder ultrasound. Medical Problem List: Nausea, vomiting and epigastric pain likely enteritis GERD Positive drug screen for THC Brief History of Present Illness: 28-year-old male present emergency room with nausea, vomiting and abdominal pain. Patient was admitted for further evaluation. Hospital Course: Patient presented with nausea, vomiting and epigastric pain. Patient evaluated in the emergency room. CT scan unremarkable. Patient was admitted for further treatment. Abdominal ultrasound showed no significant abnormality. Patient evaluated by surgery. No surgical intervention was required. Patient likely had enteritis with GERD. Patient received IV antibiotic therapy. His diet was advanced. At discharge patient without any significant abdominal pain, nausea or vomiting. At discharge he will continue with Cipro 500 mg 1 pill twice daily and Flagyl 500 mg 1 pill 3 times a day for 7 days. Patient will also continue with Protonix 40 mg 1 pill once daily. The patient will also be provided a limited supply of Zofran 4 mg 1 pill 3 times a day as needed for nausea and tramadol 50 mg 1 pill twice daily as needed for pain. Recommendation is for the patient to follow up with his PCP in 1 week to follow up this hospitalization. Recommendation is for the patient to establish care with GI as an outpatient to further address. Patient may have underlying GERD. At discharge patient will continue with Protonix 40 mg 1 pill once daily. Recommendation is for the patient to establish care with GI as an outpatient. Patient may require further evaluation including EGD and colonoscopy. Patient was found to be positive for THC. THC education cessation addressed in detail. Patient plans to quit. Vital Signs/Physical Exam: Temp Pulse Resp BP Pulse Ox 97.8 F 53 20 127/64 98 02/27/18 04:00 02/27/18 04:00 02/27/18 04:00 02/27/18 04:00 02/27/18 04:00 General: Alert, In no apparent distress, Oriented x3, Cooperative HEENT: Atraumatic, Mucous membr. moist/pink Neck: Supple Respiratory: Clear to auscultation bilaterally, Normal air movement Cardiovascular: Normal pulses, Regular rate/rhythm Gastrointestinal: Normal bowel sounds, Soft and benign, Non-distended, No tenderness, No masses, No rebound, No guarding Musculoskeletal: No erythema, No tenderness, No warmth Integumentary: No tenderness/swelling, No erythema, No warmth, No cyanosis Neurological: Normal speech, Normal strength at 5/5 x4 extr, Normal tone, Normal affect Lymphatics: No axilla or inguinal lymphadenopathy Laboratory Data at Discharge: WBC 6.5 K/uL (4.3-10.9) D 02/27/18 04:50 Hgb 13.8 g/dL (13.6-17.9) 02/27/18 04:50 Hct 39.2 % (39.6-49.0) L 02/27/18 04:50 Plt Count 296 K/uL (152-406) 02/27/18 04:50 PT 13.9 SECONDS (9.5-12.5) H 02/25/18 03:10 INR 1.18 02/25/18 03:10 Sodium 140 mmol/L (136-145) 02/27/18 04:50 Potassium 4.0 mmol/L (3.5-5.1) 02/27/18 04:50 BUN 5 mg/dL (7-18) L 02/27/18 04:50 Creatinine 0.90 mg/dL (0.55-1.3) 02/27/18 04:50 Glucose 92 mg/dL (74-106) 02/27/18 04:50 Magnesium 2.0 mg/dL (1.8-2.4) 02/27/18 04:50 Total Bilirubin 0.7 mg/dL (0.2-1.0) 02/27/18 04:50 AST 12 U/L (15-37) L 02/27/18 04:50 ALT 18 U/L (12-78) 02/27/18 04:50 Alkaline Phosphatase 44 U/L (45-117) L 02/27/18 04:50 Lipase 72 U/L (73-393) L 02/25/18 03:10 Home Medications: Ciprofloxacin HCl [Cipro 500 MG Tablet] 500 mg PO BID #14 tab 02/27/18 Ondansetron HCl [Zofran] 4 mg PO TID PRN #10 tablet 02/27/18 Pantoprazole [Protonix Tab*] 40 mg PO DAILYAC #30 tab 02/27/18 metroNIDAZOLE [Flagyl] 500 mg PO Q8H #21 tablet 02/27/18 traMADol HCL [Ultram*] 50 mg PO TID PRN #15 tab 02/27/18 New Medications: Ciprofloxacin HCl [Cipro 500 MG Tablet] 500 mg PO BID #14 tab metroNIDAZOLE [Flagyl] 500 mg PO Q8H #21 tablet Ondansetron HCl [Zofran] 4 mg PO TID PRN #10 tablet PRN Reason: Nausea / Vomiting Pantoprazole [Protonix Tab*] 40 mg PO DAILYAC #30 tab traMADol HCL [Ultram*] 50 mg PO TID PRN #15 tab PRN Reason: Pain Mild Patient Discharge Instructions: 1. Patient will need to follow up with his PCP in 1 week to follow up this hospitalization. 2. Patient presented with nausea , vomiting and epigastric pain. Patient evaluated in the emergency room. CT scan unremarkable. Patient was admitted for further treatment. Abdominal ultrasound showed no significant abnormality. Patient evaluated by surgery. No surgical intervention was required. Patient likely had enteritis with GERD. Patient received IV antibiotic therapy. His diet was advanced. At discharge patient without any significant abdominal pain, nausea or vomiting. At discharge he will continue with Cipro 500 mg 1 pill twice daily and Flagyl 500 mg 1 pill 3 times a day for 7 days. Patient will also continue with Protonix 40 mg 1 pill once daily. The patient will also be provided a limited supply of Zofran 4 mg 1 pill 3 times a day as needed for nausea and tramadol 50 mg 1 pill twice daily as needed for pain. Recommendation is for the patient to follow up with his PCP in 1 week to follow up this hospitalization. Recommendation is for the patient to establish care with GI as an outpatient to further address. 3. Patient may have underlying GERD. At discharge patient will continue with Protonix 40 mg 1 pill once daily. Recommendation is for the patient to establish care with GI as an outpatient. Patient may require further evaluation including EGD and colonoscopy. 4. Patient was found to be positive for THC. THC education cessation addressed in detail. Patient plans to quit. Diet: Soft GI diet Activity: Ad sergio Time spent managing pt's care (in minutes): 55
[2018-02-27] MEDS: CIPROFLOXACIN 400mg IV 400 MG/200 ML BAG IV SCH (09:00)
[2018-02-27 09:04] VITALS: BP 121/79; TEMP 97.7
== END 2018-02-27 10:09 | disposition home or self-care (01) ==
LOC: ER 02:15 → 2ND 06:14
PROVIDERS: ADMIT Internal Medicine; ATTEND Internal Medicine
DX: R11.2 Nausea with vomiting, unspecified (principal); R10.13 Epigastric pain; F12.90 Cannabis use, unspecified, uncomplicated; K21.9 Gastro-esophageal reflux disease without esophagitis; F17.210 Nicotine dependence, cigarettes, uncomplicated; Z23 Encounter for immunization
CPT/HCPCS: 36415; 71045; 74177; 76705; 80048; 80053; 80076; 80307; 81003; 83690; 83735; 83880; 84132; 84484; 85025; 85610; 87040; 93005; 96361; 96374; 96375; 99285; C9113; G0008; G0378; J0744; J2270; J2405; J7030; Q2035; Q9967

== ENCOUNTER 2018-04-20 20:52 | Inpatient (IN) | payer SELFPAY ==
[2018-04-20] MEDS ORDERED: ONDANSETRON 4 MG/2 ML VIAL ONE ×2 (22:08→22:42)
[2018-04-20] MEDS ORDERED: NA CHLORIDE 0.9% 1,000 ML ONE (22:08)
[2018-04-20] MEDS ORDERED: KETOROLAC 30 MG/ML INJ ONE (22:08)
[2018-04-20 22:09] LABS: Absolute Monocytes 0.9 K/uL (0.1-1.3); Absolute Neutrophil 22.9 K/uL (1.8-8.0); Basophils % 0.2 % (0-1.3); Eosinophils % 0.1 % (0-4.4); Hematocrit 51.8 % (39.6-49.0); Lymphocytes % 3.9 % (15.3-44.8); MCH 34.2 pg (27.0-35.0); MCV 99.5 fL (80-100); MPV 7.7 fL (7.6-11.3); Monocytes % 3.6 % (3.3-12.3)
[2018-04-20 22:27] LABS: Bilirubin Direct 0.2 mg/dL (0-0.2); Bilirubin Total 0.8 mg/dL (0.2-1.0); Potassium 3.8 mmol/L (3.5-5.1); Protein, Total 10.9 g/dL (6.4-8.2)
[2018-04-20 22:29] LABS: Albumin 6.5 g/dL (3.4-5.0)
[2018-04-20 23:20] LABS: Blood Morphology Comment NOT SEEN (NOT SEEN); Platelet Estimate ADEQ
[2018-04-21] MEDS ORDERED: METOCLOPRAMIDE 10 MG/2mL INJ ONE (00:40)
[2018-04-21] MEDS ORDERED: HALOPERIDOL LACT 5 MG/ML INJ ONE (00:40)
--- NOTE | 2018-04-21 01:10 | ER ---
Nurse's Notes [facility] Name: Pratik Seth Age: 28 yrs Sex: Male : 1990 Arrival Date: 04/20/2018 Time: 20:56 Bed 5 Private MD: Diagnosis: Diabetes;Colitis;Acute renal failure;Intractable nausea and vomiting Presentation: 04/20 21:09 Presenting complaint: Patient states: N/V since yesterday. Transition of care: patient aj was not received from another setting of care. Onset of symptoms was April 19, 2018. Risk Assessment: Do you want to hurt yourself or someone else? Patient reports no desire to harm self or others. Initial Sepsis Screen: Does the patient meet any 2 criteria? No. Patient's initial sepsis screen is negative. Does the patient have a suspected source of infection? No. Patient's initial sepsis screen is negative. Care prior to arrival: None. 21:09 Method Of Arrival: Wheelchair aj 21:09 Acuity: FLORIAN 3 aj Triage Assessment: 21:11 General: Appears in no apparent distress. uncomfortable, Behavior is anxious. Pain: aj Complains of pain in chest and abdomen. Neuro: Level of Consciousness is awake, alert, obeys commands, Oriented to person, place, time, situation, Appropriate for age. Respiratory: Airway is patent Respiratory effort is even, unlabored, Respiratory pattern is regular, symmetrical. GI: Reports lower abdominal pain, upper abdominal pain, nausea, vomiting. Derm: Skin is intact, is healthy with good turgor, Skin is pink, warm \T\ dry. normal. Historical: - Allergies: 21:11 Neurontin; aj - Home Meds: 21:11 None [Active]; aj - PMHx: 21:11 Anxiety; Back pain; Kidney stones; aj - PSHx: 21:11 Appendectomy; aj - Immunization history:: Adult Immunizations unknown. - Social history:: Smoking status: Patient uses tobacco products, smokes one pack cigarettes per day. Patient uses street drugs, marijuana. - Ebola Screening: : Patient negative for fever greater than or equal to 101.5 degrees Fahrenheit, and additional compatible Ebola Virus Disease symptoms Patient denies exposure to infectious person Patient denies travel to an Ebola-affected area in the 21 days before illness onset No symptoms or risks identified at this time. Screenin:53 Abuse screen: Denies threats or abuse. Nutritional screening: No deficits noted. jd3 Tuberculosis screening: No symptoms or risk factors identified. Fall Risk Ambulatory Aid- None/Bed Rest/Nurse Assist (0 pts). Gait- Normal/Bed Rest/Wheelchair (0 pts) Mental Status- Oriented to own ability (0 pts). Total Ray Fall Scale indicates No Risk (0-24 pts). Assessment: 21:51 General: Appears uncomfortable, Behavior is calm, cooperative, appropriate for age. jd3 Pain: Complains of pain in anterior aspect of left lateral abdomen Quality of pain is described as sharp. Neuro: Level of Consciousness is awake, alert, obeys commands, Oriented to person, place, time, situation. Cardiovascular: Capillary refill < 3 seconds Patient's skin is warm and dry. Respiratory: Airway is patent Respiratory effort is even, unlabored, Respiratory pattern is regular, symmetrical, Breath sounds are clear bilaterally. GI: Abdomen is round non-distended, Bowel sounds present X 4 quads. Abdomen is tender to palpation in anterior aspect of left lateral abdomen Reports lower abdominal pain, nausea, vomiting. : No signs and/or symptoms were reported regarding the genitourinary system. EENT: No signs and/or symptoms were reported regarding the EENT system. Derm: Skin is intact, Skin is dry, Skin is normal, Skin temperature is warm. Musculoskeletal: Circulation, motion, and sensation intact. Range of motion: intact in all extremities. 22:36 Reassessment: pt vomiting, provider notified with new verbal orders given. ak1 04/21 00:50 Reassessment: Patient appears in no apparent distress at this time. No changes from jd3 previously documented assessment. Patient and/or family updated on plan of care and expected duration. Pain level reassessed. 02:59 Reassessment: Patient appears in no apparent distress at this time. Patient and/or jd3 family updated on plan of care and expected duration. Pain level reassessed. Patient is alert, oriented x 3, equal unlabored respirations, skin warm/dry/pink. 03:00 Reassessment: Patient and/or family updated on plan of care and expected duration. Pain ea level reassessed. Patient is alert, oriented x 3, equal unlabored respirations, skin warm/dry/pink. Report called to receiving nurse. Patient states symptoms have improved. Vital Signs: 04/20 21:11 BP 124 / 89; Pulse 113; Resp 20; Temp 97.0; Pulse Ox 98% on R/A; Weight 63.5 kg; Height aj 5 ft. 11 in. (180.34 cm); 22:53 BP 177 / 116; Pulse 85; Resp 16; Pulse Ox 99% ; ea 04/21 00:51 BP 139 / 87; Pulse 64; Resp 19 S; Pulse Ox 98% on R/A; jd3 02:59 BP 164 / 116; Pulse 58; Resp 16 S; Pulse Ox 98% on R/A; jd3 04/20 21:11 Body Mass Index 19.53 (63.50 kg, 180.34 cm) aj ED Course: 04/20 20:56 Patient arrived in ED. ds1 21:09 Leydi Stephens, RN is Primary Nurse. aj 21:10 Triage completed. aj 21:11 Arm band placed on right wrist. Patient placed in waiting room, Patient notified of wait time. 21:40 Inserted saline lock: 22 gauge in right forearm, using aseptic technique. Blood ea collected. 21:41 Ramesh Nguyen, RN is Primary Nurse. jd3 21:42 Peterson Quintanilla MD is Attending Physician. ps1 21:54 Patient has correct armband on for positive identification. Bed in low position. Call j light in reach. Side rails up X 1. Adult w/ patient. 22:16 CT completed. Patient moved back from CT. nj 22:19 CT Abd/Pelvis - Without Cont In Process Unspecified. EDMS 22:27 Notified ED physician of a critical lab result(s). WBC of 24.8. jd3 23:00 Primary Nurse role handed off by Ramesh Nguyen, LENNY ea 23:00 aMry Kay Devine, LENNY is Primary Nurse. ea 04/21 01:07 Suma Benjamin MD is Hospitalizing Provider. ps1 03:00 No provider procedures requiring assistance completed. Patient admitted, IV remains in jd3 place. Administered Medications: 04/20 02:47 Drug: Rocephin - (cefTRIAXone) 1 grams Route: IVPB; Infused Over: 30 mins; Site: right jd3 wrist; 04/21 02:58 Follow up: Response: No adverse reaction; IV Status: Completed infusion jd3 04/20 22:00 Drug: TORadol 30 mg Route: IVP; Site: right forearm; ea 04/21 02:57 Follow up: Response: No adverse reaction jd3 04/20 22:00 Drug: Zofran 4 mg Route: IVP; Site: right forearm; ea 04/21 02:57 Follow up: Response: No adverse reaction jd3 04/20 22:00 Drug: NS 0.9% 1000 ml Route: IV; Rate: 1 bolus; Site: right forearm; ea 04/21 02:58 Follow up: Response: No adverse reaction; IV Status: Completed infusion; IV Intake: jd3 1000ml 04/20 22:36 Drug: Zofran 4 mg Route: IVP; Site: right wrist; ak1 04/21 02:57 Follow up: Response: No adverse reaction jd3 00:37 Drug: HALdol 2.5 mg Route: IVP; Site: right wrist; jd3 02:57 Follow up: Response: No adverse reaction jd3 00:38 Drug: Reglan 10 mg Route: IVP; Site: right forearm; jd3 02:57 Follow up: Response: No adverse reaction jd3 02:56 Drug: Cipro 400 mg Volume: 200 ml; Route: IVPB; Infused Over: 60 mins; Site: right jd3 wrist; 02:58 Follow up: Response: No adverse reaction; IV Status: Infusion continued upon admission jd3 02:56 Drug: Flagyl 500 mg Volume: 100 ml; Route: IVPB; Rate: 200 ml/hr; Infused Over: 30 jd3 mins; Site: right wrist; 02:59 Follow up: Response: No adverse reaction; IV Status: Completed infusion jd3 Intake: 02:58 IV: 1000ml; Total: 1000ml. jd3 Outcome: 01:08 Decision to Hospitalize by Provider. ps1 03:01 Admitted to Med/surg accompanied by tech, via wheelchair, room 421, with chart, Report jd3 called to Maris GALVEZ 03:01 Condition: stable 03:18 Patient left the ED. jessica Signatures: Dispatcher [employer] Leydi Jung RN RN aj Sanford, Demi dsAntonieta Shaw RN RN ak1 Yosi Vazquez Elena, RN RN ea Davies, Jonathon, RN RN jd3 Singer, Phillip, MD MD ps1 Corrections: (The following items were deleted from the chart) 04/20 21:13 21:11 Arm band placed on right wrist. Patient placed aj aj 04/21 03:18 03:16 Reassessment: Patient and/or family updated on plan of care and expected ea duration. Pain level reassessed. Patient is alert, oriented x 3, equal unlabored respirations, skin warm/dry/pink. Report called to receiving nurse. Patient states symptoms have improved. ea
--- NOTE | 2018-04-21 01:10 | EDPHYS ---
Physician Documentation [facility] Name: Pratik Seth Age: 28 yrs Sex: Male : 1990 Arrival Date: 04/20/2018 Time: 20:56 Bed 5 Private MD: ED Physician Peterson Quintanilla HPI: 04/20 22:00 This 28 yrs old Male presents to ER via Wheelchair with complaints of ps1 Vomiting. 22:00 patient with 2 days of flank pain. localized to left flank. Assoicated with nausea and ps1 vomiting. Denies fever. Pain rated as moderate. Never had symptoms like this before. . Historical: - Allergies: 21:11 Neurontin; aj - Home Meds: 21:11 None [Active]; aj - PMHx: 21:11 Anxiety; Back pain; Kidney stones; aj - PSHx: 21:11 Appendectomy; aj - Immunization history:: Adult Immunizations unknown. - Social history:: Smoking status: Patient uses tobacco products, smokes one pack cigarettes per day. Patient uses street drugs, marijuana. - Ebola Screening: : Patient negative for fever greater than or equal to 101.5 degrees Fahrenheit, and additional compatible Ebola Virus Disease symptoms Patient denies exposure to infectious person Patient denies travel to an Ebola-affected area in the 21 days before illness onset No symptoms or risks identified at this time. ROS: 22:00 Constitutional: Negative for fever, chills, and weight loss, Eyes: Negative for injury, ps1 pain, redness, and discharge, Cardiovascular: Negative for chest pain, palpitations, and edema, Respiratory: Negative for shortness of breath, cough, wheezing, and pleuritic chest pain, MS/Extremity: Negative for injury and deformity, Neuro: Negative for headache, weakness, numbness, tingling, and seizure, Psych: Negative for depression, anxiety, suicide ideation, homicidal ideation, and hallucinations. 22:00 Abdomen/GI: Positive for abdominal pain. Exam: 22:00 Constitutional: This is a well developed, well nourished patient who is awake, alert, ps1 and in no acute distress. Head/Face: Normocephalic, atraumatic. Eyes: Pupils equal round and reactive to light, extra-ocular motions intact. Lids and lashes normal. Conjunctiva and sclera are non-icteric and not injected. Chest/axilla: Normal chest wall appearance and motion. Nontender with no deformity. No lesions are appreciated. Cardiovascular: Regular rate and rhythm. No gallops, murmurs, or rubs. Normal PMI, no JVD. No pulse deficits. Respiratory: Lungs have equal breath sounds bilaterally, clear to auscultation and percussion. No rales, rhonchi or wheezes noted. No increased work of breathing, no retractions or nasal flaring. Skin: Warm, dry with normal turgor. Normal color with no rashes, no lesions, and no evidence of cellulitis. MS/ Extremity: Pulses equal, no cyanosis. Neurovascular intact. Full, normal range of motion. Neuro: Awake and alert, GCS 15, oriented to person, place, time, and situation. Cranial nerves II-XII grossly intact. Sensory grossly intact. 22:00 Abdomen/GI: Inspection: abdomen appears normal, Palpation: mild abdominal tenderness, in the anterior aspect of left lateral abdomen. Vital Signs: 21:11 BP 124 / 89; Pulse 113; Resp 20; Temp 97.0; Pulse Ox 98% on R/A; Weight 63.5 kg; Height aj 5 ft. 11 in. (180.34 cm); 22:53 BP 177 / 116; Pulse 85; Resp 16; Pulse Ox 99% ; ea 04/21 00:51 BP 139 / 87; Pulse 64; Resp 19 S; Pulse Ox 98% on R/A; jd3 02:59 BP 164 / 116; Pulse 58; Resp 16 S; Pulse Ox 98% on R/A; jd3 04/20 21:11 Body Mass Index 19.53 (63.50 kg, 180.34 cm) MDM: 04/20 22:38 Patient medically screened. [facility] 04/20 21:49 Order name: Basic Metabolic Panel; Complete Time: 22:39 ea 04/21 01:03 Interpretation: Abnormal: GLUC 255. ps1 04/20 21:49 Order name: CBC with Diff; Complete Time: 23:24 ea 04/20 21:49 Order name: Creatinine for Radiology; Complete Time: 22:39 ea 04/20 21:49 Order name: Hepatic Function; Complete Time: 22:39 ea 04/20 21:49 Order name: Lipase; Complete Time: 22:39 ea 04/20 22:27 Order name: Manual Differential; Complete Time: 23:24 EDMS 11/28 22:00 Order name: CT Abd/Pelvis - Without Cont ps1 04/21 01:04 Order name: ABG; Complete Time: 02:00 ps1 04/21 01:51 Order name: Blood Culture EDCA 04/20 21:49 Order name: IV Saline Lock; Complete Time: 22:11 ea 04/20 21:49 Order name: Labs collected and sent; Complete Time: 22:11 ea Administered Medications: 02:47 Drug: Rocephin - (cefTRIAXone) 1 grams Route: IVPB; Infused Over: 30 mins; Site: right jd3 wrist; 04/21 02:58 Follow up: Response: No adverse reaction; IV Status: Completed infusion [facility] 04/20 22:00 Drug: TORadol 30 mg Route: IVP; Site: right forearm; ea 04/21 02:57 Follow up: Response: No adverse reaction [facility] 04/20 22:00 Drug: Zofran 4 mg Route: IVP; Site: right forearm; ea 04/21 02:57 Follow up: Response: No adverse reaction [facility] 04/20 22:00 Drug: NS 0.9% 1000 ml Route: IV; Rate: 1 bolus; Site: right forearm; ea 04/21 02:58 Follow up: Response: No adverse reaction; IV Status: Completed infusion; IV Intake: jd3 1000ml 04/20 22:36 Drug: Zofran 4 mg Route: IVP; Site: right wrist; ak1 04/21 02:57 Follow up: Response: No adverse reaction jd3 00:37 Drug: HALdol 2.5 mg Route: IVP; Site: right wrist; jd3 02:57 Follow up: Response: No adverse reaction jd3 00:38 Drug: Reglan 10 mg Route: IVP; Site: right forearm; jd3 02:57 Follow up: Response: No adverse reaction jd3 02:56 Drug: Cipro 400 mg Volume: 200 ml; Route: IVPB; Infused Over: 60 mins; Site: right jd3 wrist; 02:58 Follow up: Response: No adverse reaction; IV Status: Infusion continued upon admission jd3 02:56 Drug: Flagyl 500 mg Volume: 100 ml; Route: IVPB; Rate: 200 ml/hr; Infused Over: 30 jd3 mins; Site: right wrist; 02:59 Follow up: Response: No adverse reaction; IV Status: Completed infusion jd3 Disposition: 04/21/18 01:08 Hospitalization ordered by Suma Benjamin for Inpatient Admission. Preliminary diagnosis are Diabetes, Colitis, Acute renal failure, Intractable nausea and vomiting. - Bed requested for Telemetry/MedSurg (Inpatient). - Status is Inpatient Admission. ea - Condition is Fair. - Problem is new. - Symptoms have improved. UTI on Admission? No Signatures: Dispatcher [employer] EDLeydi Castro, RN RN Antonieta Echeverria RN RN akCecile Crowe, RN RN Mary Kay Poe, RN RN Ramesh Ann, RN LENNY jPeterson Garsia MD MD ps1 Corrections: (The following items were deleted from the chart) 02:00 01:08 Hospitalization Ordered by Suma Benjamin MD for Inpatient Admission. Preliminary cg diagnosis is Diabetes; Colitis; Acute renal failure; Intractable nausea and vomiting. Bed requested for Telemetry/MedSurg (Inpatient). Status is Inpatient Admission. Condition is Fair. Problem is new. Symptoms have improved. UTI on Admission? No. ps1 03:16 04/20 22:00 Urine Dipstick-Ancillary ordered. ps1 ea 04/21 03:18 02:00 04/21/2018 01:08 Hospitalization Ordered by Suma Benjamin MD for Inpatient ea Admission. Preliminary diagnosis is Diabetes; Colitis; Acute renal failure; Intractable nausea and vomiting. Bed requested for Telemetry/MedSurg (Inpatient). Status is Inpatient Admission. Condition is Fair. Problem is new. Symptoms have improved. UTI on Admission? No. cg
[2018-04-21 01:34] LABS: Arterial Blood Carboxyhemoglob 1.1 % (0-1.5); Blood Gas Oxyhemoglobin 94.9 % (94-97); Blood O2 Saturation 97.1 % (92-98.5)
[2018-04-21] MEDS ORDERED: CEFTRIAXONE/SWI 1gm 1 GM/10 ML SYR ONE (01:59)
[2018-04-21] MEDS ORDERED: CIPROFLOXACIN 400mg IV 400 MG/200 ML BAG IV ONE (01:59)
[2018-04-21] MEDS ORDERED: METRONIDAZOLE 500mg IVPB 500 MG/100 ML BAG IV ONE (01:59)
--- NOTE | 2018-04-21 02:32 | P.HP ---
Certification for Inpatient Patient admitted to: Inpatient With expected LOS: >2 Midnights Practitioner: I am a practitioner with admitting privileges, knowledge of patient current condition, hospital course, and medical plan of care. Services: Services provided to patient in accordance with Admission requirements found in Title 42 Section 412.3 of the Code of Federal Regulations Patient History Date of Service: 04/21/18 Reason for admission: colitis History of Present Illness: Mr Seth is a 28 years old male with history of anxiety disorder, tobacco abuse , who start about 2 days ago with diffuse abdominal pain associated with nausea and vomiting. He denied any fever or chills. No diarrhea either. The patient has not been able to eat or keep fluids down. In ED he is abebrile, lab work significantly abnormal, WBC count 24.8K with 1% bands, hyperglycemia and abnormal renal function. CT abd/pelvis remarkable for a left non-obstructive renal stone, and signs of colitis. Allergies naproxen Allergy (Verified 02/25/18 07:56) Unknown Home Medications: Ciprofloxacin HCl [Cipro 500 MG Tablet] 500 mg PO BID #14 tab 02/27/18 Ondansetron HCl [Zofran] 4 mg PO TID PRN #10 tablet 02/27/18 Pantoprazole [Protonix Tab*] 40 mg PO DAILYAC #30 tab 02/27/18 metroNIDAZOLE [Flagyl] 500 mg PO Q8H #21 tablet 02/27/18 traMADol HCL [Ultram*] 50 mg PO TID PRN #15 tab 02/27/18 - Past Medical/Surgical History Diabetic: No -: wrist fx -: TIA with aphasia (12/05) -: R wrist fx -: appendectomy - Family History Mother -: Cancer Notes: lung cx - Social History Smoking Status: Current every day smoker Counseled patient to stop smoking for: less than 10 minutes Alcohol use: No CD- Drugs: No Caffeine use: Yes Place of Residence: Home Review of Systems 10-point ROS is otherwise unremarkable Physical Examination - Physical Exam General: Alert, Moderate distress (due to abdominal pain) HEENT: Atraumatic, PERRLA, Mucous membr. moist/pink, EOMI, Sclerae nonicteric Neck: Supple, 2+ carotid pulse no bruit, No LAD, Without JVD or thyroid abnormality Respiratory: Clear to auscultation bilaterally, Normal air movement Cardiovascular: Regular rate/rhythm, Normal S1 S2 Gastrointestinal: Hypoactive, Tenderness (diffuse tenderness to palpation) Musculoskeletal: No tenderness Integumentary: No rashes Neurological: Normal speech, Normal strength at 5/5 x4 extr, Normal tone, Normal affect Lymphatics: No axilla or inguinal lymphadenopathy - Studies Laboratory Data (last 24 hrs) 04/20/18 21:50: Creatinine 3.40 H 04/20/18 21:50: WBC 24.8 H*, Hgb 17.8, Hct 51.8 H, Plt Count 477 H 04/20/18 21:50: Sodium 133 L, Potassium 3.8, BUN 29 H, Creatinine 3.50 H, Glucose 255 H, Total Bilirubin 0.8, AST 18, ALT 32, Alkaline Phosphatase 74, Lipase 114 Assessment and Plan - Problems (Diagnosis) (1) Colitis Current Visit: Yes Status: Acute (2) Acute renal injury Current Visit: Yes Status: Acute (3) Abdominal pain Onset Date: 02/28/18 Current Visit: No Status: Acute Qualifiers: Abdominal location: generalized Qualified Code(s): R10.84 - Generalized abdominal pain (4) Nausea & vomiting Onset Date: 03/11/15 Current Visit: No Status: Acute Qualifiers: Vomiting type: unspecified Vomiting Intractability: intractable Qualified Code(s): R11.2 - Nausea with vomiting, unspecified - Plan The patient will be admitted to the hospital due to colitis. He has also acute renal injury, possible due to volume depletion. He has elevated serum proteins, hyperalbuminemia and hypercalcemia. Will re-evaluate chemical panel after fluid repletion, if remain elevated, consider multiple myeloma as part of differential diagnosis. Will order IV Cipro and Flagyl, aggressive IV fluids, symptomatic medication for N/V and abdominal pain. - Advance Directives Does patient have a Living Will: No Does patient have a Durable POA for Healthcare: No - Code Status/Comfort Care Code Status Assessed: Yes Code Status: Full Code
[2018-04-21] MEDS ORDERED: ACETAMINOPHEN 500 MG TAB PO PRN (03:26)
[2018-04-21] MEDS: ONDANSETRON 4 MG/2 ML VIAL IV PRN (03:44)
[2018-04-21] MEDS: NA CHLORIDE 0.9% 1,000 ML IV SCH ×2 (03:44→13:13)
[2018-04-21] MEDS: MORPHINE 2 MG/ML SYR IV PRN ×4 (03:45→21:18)
[2018-04-21 04:12] VITALS: O2SAT 100; BMI 16.3
[2018-04-21] MEDS: INSULIN -REGULAR HUMAN 50 UNIT/0.5 ML ML SQ SCH ×3 (06:00→18:00)
[2018-04-21] MEDS ORDERED: NA CHLORIDE 0.9% 1,000 ML IV ONE (06:09)
[2018-04-21] MEDS ORDERED: KCL 20 MEQ/100 mL IVPB 20 MEQ/100 ML BAG IV SCH (08:00)
--- NOTE | 2018-04-21 08:28 | RAD REPORT ---
EXAM DESCRIPTION: CT - Abdomen Pelvis Wo Contrast - 04/21/2018 4:35 am CLINICAL HISTORY: Abdominal pain, left flank pain A preliminary report was provided at the time of the study and reviewed prior to final report. COMPARISON: CT study February 2018 TECHNIQUE: Axial [address] imaging of the abdomen and pelvis was performed without IV contrast. No IV contrast was given because of allergy, abnormal renal function, patient refusal or physician re quest. No oral contrast administered. All CT scans are performed using dose optimization technique as appropriate and may include automated exposure control or mA/KV adjustment according to patient size. FINDINGS: No suspicious findings in the lung bases. The liver, spleen and pancreas show no suspicious findings on non-contrast imaging. Gallbladder and b iliary tree are also without suspicious finding. No hydronephrosis or suspicious renal mass. Patient has punctate nonobstructing caliceal calculi. No perinephric stranding. No significant adrenal finding. Isodense renal masses and pyelonephritis canno t be excluded in the absence of IV contrast. Urinary bladder is contracted limiting assessment. No bl adder calculi seen. Multiple pelvic floor phleboliths are present. No dilated bowel loops or bowel wall thickening. Colon is decompressed. No active GI process identifi able. No free air, free fluid or inflammatory stranding. No hernia, mass or bulky lymphadenopathy. No suspicious bony findings. IMPRESSION: Non-contrast enhanced CT abdomen and pelvis imaging show no significant or suspicious fi nding. Patient has punctate nonobstructing renal calyx calculi. Full assessment is limited is the absence of IV contrast.
[2018-04-21] MEDS ORDERED: CIPROFLOXACIN 400mg IV 400 MG/200 ML BAG IV SCH (09:00)
[2018-04-21] MEDS: HEPARIN 5000 UNIT/ML 1 ML VIAL SQ SCH ×2 (09:04→21:17)
[2018-04-21] MEDS: METRONIDAZOLE 500mg IVPB 500 MG/100 ML BAG IV SCH ×2 (09:04→17:00)
[2018-04-21] MEDS ORDERED: SODIUM CHLORIDE 0.9% 10ML INJ IV PRN (11:46)
[2018-04-21 12:03] LABS: Potassium 4.2 mmol/L (3.5-5.1)
[2018-04-21] MEDS: PANTOPRAZOLE 40 MG INJ IVP SCH (13:11)
[2018-04-21 18:46] LABS: Barbiturates NEGATIVE (NEGATIVE); Benzodiazepines NEGATIVE (NEGATIVE); Cocaine POSITIVE (NEGATIVE); METHAMPHETAM NEGATIVE (NEGATIVE); Methadone NEGATIVE (NEGATIVE); Opiates POSITIVE (NEGATIVE); Phencyclidine NEGATIVE (NEGATIVE); THC Cannibis POSITIVE (NEGATIVE)
[2018-04-21] MEDS ORDERED: INSULIN -REGULAR HUMAN 50 UNIT/0.5 ML ML SQ SCH (21:00)
--- NOTE | 2018-04-21 21:32 | P.CNS ---
Date of Consult: 04/21/18 Reason for Consult: IRON Chief Complaint: colitis History of Present Illness: A 28 years old male with history of anxiety disorder, tobacco abuse Pt was admitted for recurret episodes of vomiting and abdominal pain of 2 days duration no diarrhea or constipation denied NSAID or contrast exposure taking opiates occasionally for back pain Allergies naproxen Allergy (Verified 02/25/18 07:56) Unknown Home Medications: NK [No Home Meds] 04/21/18 - Past Medical/Surgical History Diabetic: No -: wrist fx -: TIA with aphasia (12/05) -: anxiety -: back pain -: kidney stones -: R wrist fx -: appendectomy - Family History Mother Medical History: Cancer Notes: lung cx - Social History Smoking Status: Current every day smoker Alcohol use: No CD- Drugs: No Caffeine use: Yes Place of Residence: Home Physical Examination Temp Pulse Resp BP Pulse Ox 99.8 F 87 18 142/89 H 97 04/21/18 20:00 04/21/18 20:00 04/21/18 20:00 04/21/18 20:00 04/21/18 20:00 General: Oriented x3, Moderate distress HEENT: Atraumatic Neck: Supple, Without JVD or thyroid abnormality Respiratory: Clear to auscultation bilaterally, Normal air movement Cardiovascular: No edema, Normal pulses, Regular rate/rhythm, Normal S1 S2 Laboratory Data (last 24 hrs) 04/20/18 21:50: Creatinine 3.40 H 04/20/18 21:50: WBC 24.8 H*, Hgb 17.8, Hct 51.8 H, Plt Count 477 H 04/20/18 21:50: Sodium 133 L, Potassium 3.8, BUN 29 H, Creatinine 3.50 H, Glucose 255 H, Total Bilirubin 0.8, AST 18, ALT 32, Alkaline Phosphatase 74, Lipase 114 - Problems (1) Acute renal injury Current Visit: Yes Status: Acute (2) Abdominal pain Onset Date: 03/11/15 Current Visit: No Status: Acute Qualifiers: Abdominal location: epigastric Qualified Code(s): R10.13 - Epigastric pain (3) Nausea & vomiting Onset Date: 03/11/15 Current Visit: No Status: Acute Qualifiers: Vomiting type: unspecified Vomiting Intractability: intractable Qualified Code(s): R11.2 - Nausea with vomiting, unspecified Conclusions/Impression: A 28 years old male with history of anxiety disorder, tobacco abuse Pt was admitted for recurret episodes of vomiting and abdominal pain of 2 days duration no diarrhea or constipation denied NSAID or contrast exposure taking opiates occasionally for back pain IRON likely due to dehydration Improved on IVF COnt IVF abd Ct : no hydo, lt non-obstructing renal stone will get UA Cont IVF ABd pain Utox +ve for cocaine and cannbiniodes likely due to withdrawal Hypercalcemia due to dehydration resolved hyperglycemia A1c WNL
--- NOTE | 2018-04-21 22:12 | PN ---
Date of Progress Note: 04/21/2018 Subjective: Patient was seen and examined. Chart reviewed and case discussed with RN and Dr. Marylou humphrey. The patient is still having significant amount of abdominal pain, nausea, and somewhat tremulou s. Review of Systems: Negative except as above. Medications: List reviewed. Physical Examination: Vital Signs: Temperature 99.6, heart rate 68, blood pressure 151/81, respirations 18, O2 97% on room air. General: Awake, alert, oriented x3. Moderate distress due to pain, cachectic male. BMI 16. CV: S1, S2. Regular rate and rhythm. Peripheral pulses present. No murmurs. Respiratory: Moving air well bilaterally. No wheezing. Gastrointestinal: Abdomen is soft. Voluntary guarding is present. No rigidity. Bowel sounds hypoa ctive. No distention. Tenderness to palpation in the epigastric region. No rebound. Extremities: No clubbing, cyanosis, edema. Neurologic: Nonfocal. Cranial nerves 2 through 12 intact grossly. Speech is normal. Strength is s ymmetric in bilateral upper and lower extremities. Skin: No rashes. Normal skin turgor. Laboratory Data: Sodium 136, potassium 4.2, chloride 103, CO2 24, BUN 38, creatinine 2, glucose 128. Lactic acid 1.9, calcium 8.7. CK level 74. WBC 24.8 from 04/20/2018, platelet 477. Blood culture s pending. CT scan of the abdomen and pelvis shows no significant or suspicious finding, has punctat e nonobstructing renal lyle calculi. Assessment And Plan: A 28-year-old male with 1.Acute colitis. We will continue on IV antibiotics and follow up on cultures. The patient's white count is severely elevated at 24, with bandemia. 2.Acute kidney injury, likely prerenal azotemia, improving with IV fluids. Repeat creatinine is imp roved. Nephrology has been consulted. 3.Acute generalized abdominal pain secondary to colitis. 4.Intractable nausea and vomiting. Will advance diet as tolerated. Continue antiemetics. 5.Hyperglycemia, likely acute phase reactant. We will check A1c if continues to be elevated. 6.Gastrointestinal and deep venous thrombosis prophylaxis addressed. The patient is on heparin. We will add IV PPI. Plan: 1.Continue conservative treatment. 2.Continue IV antibiotics. 3.Likely discharge in next 24 to 48 hours depending on clinical response. SA/MODL Voice ID: [id number] Report ID: [id number]
[2018-04-22] MEDS: NA CHLORIDE 0.9% 1,000 ML IV SCH ×2 (00:21→08:47)
[2018-04-22] MEDS: METRONIDAZOLE 500mg IVPB 500 MG/100 ML BAG IV SCH ×2 (00:22→08:39)
[2018-04-22 00:42] LABS: Urine Appearance CLEAR; Urine Bilirubin NEGATIVE (NEG); Urine Blood TRACE (NEG); Urine Color YELLOW; Urine Glucose NEGATIVE (NEG); Urine Protein NEGATIVE (NEG); Urine Specific Gravity 1.015 (1.005-1.030); Urine Urobilinogen 0.2 mg/dL (0.2-1.0)
[2018-04-22 00:43] LABS: Urine Microscopic Reflex ORDER UMIC
[2018-04-22 01:30] LABS: Urine Bacteria <20 /HPF (NONE SEEN); Urine Culture Reflex Order NOT NEEDED; Urine RBC <5 /HPF (NONE SEEN)
[2018-04-22] MEDS: MORPHINE 2 MG/ML SYR IV PRN (02:14)
[2018-04-22] MEDS: ONDANSETRON 4 MG/2 ML VIAL IV PRN ×2 (02:15→08:33)
[2018-04-22 05:40] LABS: Absolute Monocytes 1.2 K/uL (0.1-1.3); Absolute Neutrophil 8.3 K/uL (1.8-8.0); Basophils % 0.3 % (0-1.3); Eosinophils % 0.3 % (0-4.4); Hematocrit 36.2 % (39.6-49.0); Lymphocytes % 17.1 % (15.3-44.8); MCH 34.8 pg (27.0-35.0); MCV 98.2 fL (80-100); Monocytes % 10.2 % (3.3-12.3); RBC Red Blood Cell Count 3.69 M/uL (4.33-5.43)
[2018-04-22] MEDS ORDERED: TRAMADOL HCL 50 MG TAB PO ONE (08:11)
[2018-04-22] MEDS: PANTOPRAZOLE 40 MG INJ IVP SCH (08:41)
[2018-04-22] MEDS: HEPARIN 5000 UNIT/ML 1 ML VIAL SQ SCH (08:44)
[2018-04-22] MEDS ORDERED: CIPROFLOXACIN 400mg IV 400 MG/200 ML BAG IV SCH (09:00)
[2018-04-22 09:26] VITALS: BP 154/103; TEMP 97
--- NOTE | 2018-04-23 05:50 | DS ---
Date of Discharge: 04/22/2018 Consultants: Dr. Pascual with Nephrology. Admitting Diagnoses: 1.Acute colitis. 2.Acute kidney injury. 3.Epigastric abdominal pain. 4.Intractable nausea and vomiting. Discharge Diagnoses: 1.Acute colitis, resolved. 2.Acute kidney injury, likely prerenal azotemia, resolved. Creatinine normalized. 3.Acute generalized abdominal pain, resolved. 4.Intractable nausea and vomiting, likely cyclical vomiting due to cannabinoid abuse. 5.Hyperglycemia. 6.Cocaine abuse. 7.Cannabinoid abuse, counseled. Hospital Course: The patient is a 28-year-old male who came into the hospital with acute abdominal p ain. CT scan of the abdomen was done, did not show a nonobstructing renal calculi; however, he did h ave an elevated white count of 24,000 with bandemia. The patient's kidney function was 3.5, which wa s acute from his baseline. The patient did have elevated lactate level. He was given IV fluid hydra tion. Lactate level came down to 1.9. His kidney function also improved. The patient was seen by n ephrologist. UDS was done, which was positive for cocaine, THC, and opiates. The patient did receiv e narcotic pain medications, however the patient did accept that he used marijuana. He vehemently de nied cocaine use; however, stated that it is possible his marijuana may have been tainted. His abdom inal pain improved. He was then started on clear liquids and his diet was advanced. The patient was able to tolerate solid food. Likely his nausea, vomiting, and abdominal pain were caused by colitis and some cyclical vomiting syndrome secondary to marijuana abuse. The patient was counseled jona nichols. He stated that he plans to quit cannabinoid use. The patient was then cleared for discharge f rom consultants' standpoint. His symptoms had resolved. He was tolerating his diet. He did not hav e any further nausea or vomiting. He was then discharged home in stable condition. Activity: As tolerated. Medications: As per medication reconciliation list. Followup: Establish care with primary care physician in 2 days. Return to ER for worsening conditio n. Diet: Regular. Physical Examination: General: Awake, alert, and oriented, in no acute distress. CV: S1, S2. No murmurs. Respiratory: Moving air well bilaterally. Abdomen: Soft, nontender, nondistended. Positive bowel sounds. Extremities: No clubbing, cyanosis, edema. Neurologic: Nonfocal. Total time spent discharging the patient was 31 minutes. /ANTONIETA Voice ID: [id number] Report ID: [id number]
== END 2018-04-22 11:49 | disposition home or self-care (01) | DRG 392 ==
LOC: ER 20:52 → 4TH 04-21 03:03
PROVIDERS: ADMIT Internal Medicine; ATTEND Internal Medicine
DX: K52.9 Noninfective gastroenteritis and colitis, unspecified (principal); N17.9 Acute kidney failure, unspecified; R79.89 Other specified abnormal findings of blood chemistry; R73.9 Hyperglycemia, unspecified; F14.10 Cocaine abuse, uncomplicated; F12.10 Cannabis abuse, uncomplicated; G43.A1 Cyclical vomiting, in migraine, intractable; Z86.73 Personal history of transient ischemic attack (TIA), and cerebral infarction without residual deficits; F17.210 Nicotine dependence, cigarettes, uncomplicated
CPT/HCPCS: 36415; 74176; 80048; 80076; 80307; 81003; 81015; 82550; 82805; 82962; 83036; 83605; 83690; 85025; 87040; 99285; C9113; J0696; J0744; J1630; J1644; J2270; J2405; J2765; J7030

== ENCOUNTER 2018-04-23 19:18 | Observation (INO) | payer SELFPAY ==
[2018-04-23] MEDS ORDERED: MORPHINE 4 MG/ML SYR ONE (20:05)
[2018-04-23] MEDS ORDERED: ONDANSETRON 4 MG/2 ML VIAL ONE (20:05)
[2018-04-23] MEDS ORDERED: Ringers Lactate 1,000 ML IV ONE (20:05)
[2018-04-23 20:16] LABS: Absolute Lymphocytes (CBC) 1.8 K/uL (0.7-4.9); Absolute Monocytes 0.9 K/uL (0.1-1.3); Absolute Neutrophil 8.2 K/uL (1.8-8.0); Basophils % 0.8 % (0-1.3); Eosinophils % 1.3 % (0-4.4); Hematocrit 39.1 % (39.6-49.0); Lymphocytes % 15.8 % (15.3-44.8); MCH 34.5 pg (27.0-35.0); MCV 98.3 fL (80-100); MPV 8.2 fL (7.6-11.3); Monocytes % 7.9 % (3.3-12.3); RBC Red Blood Cell Count 3.98 M/uL (4.33-5.43)
--- NOTE | 2018-04-23 20:40 | RAD REPORT ---
EXAM DESCRIPTION: CT - Stone Protocol - 04/23/2018 8:26 pm CLINICAL HISTORY: Flank pain. lower abdominal pain COMPARISON: Abdomen Pelvis Wo Contrast dated 04/20/2018 TECHNIQUE: Axial images were obtained without oral or IV contrast. Lack of contrast limits solid org an and vascular assessment. The [id number] spans the entirety of the system partially obscuring uppermost abdomen and lung bases. Coronal reformatted images were obtained and reviewed. All CT scans are performed using dose optimization technique as appropriate and may include automated exposure control or mA/KV adjustment according to patient size. FINDINGS: The lower lung sweet are clear. Imaged portions of the liver and spleen show no suspicious findings on non-contrast imaging. The panc reas and adrenal glands are normal. No pathologic lymphadenopathy in the abdomen or pelvis. Small nonobstructing bilateral caliceal are present. No bowel obstruction, free air, free fluid or abscess. The appendix is not identified as a discrete s tructure, however, no secondary findings of appendicitis are identified. No significant bony abnormality. IMPRESSION: Small bilateral caliceal stones without hydronephrosis.
[2018-04-23 21:04] LABS: Albumin 4.6 g/dL (3.4-5.0); Bilirubin Direct 0.2 mg/dL (0-0.2); Bilirubin Total 0.6 mg/dL (0.2-1.0); Potassium 4.1 mmol/L (3.5-5.1); Protein, Total 7.9 g/dL (6.4-8.2)
[2018-04-23] MEDS ORDERED: DIAZEPAM 10 MG/2 ML INJ SYRINGE ONE (21:10)
[2018-04-23 21:52] LABS: Urine Blood 2+ (NEG); Urine Glucose NEGATIVE (NEG); Urine Protein TRACE (NEG); Urine Specific Gravity >1.030 (1.005-1.030); Urine pH 5.5 (5.0-7.0)
[2018-04-23] MEDS ORDERED: NA CHLORIDE 0.9% 50 ML IV ONE (22:29)
[2018-04-23] MEDS ORDERED: NA CHLORIDE 0.9% 1,000 ML ONE (22:29)
[2018-04-23] MEDS ORDERED: METOCLOPRAMIDE 10 MG/2mL INJ ONE (22:29)
[2018-04-23] MEDS ORDERED: DIPHENHYDRAMINE 50 MG/ML VIAL ONE (22:29)
--- NOTE | 2018-04-24 00:27 | EDPHYS ---
Physician Documentation [facility] Name: Pratik Seth Age: 28 yrs Sex: Male : 1990 Arrival Date: 04/23/2018 Time: 19:31 Bed 26 Private MD: ED Physician Scott Reardon HPI: 04/23 19:44 This 28 yrs old Male presents to ER via Ambulatory with complaints of jmm Abdominal Pain. 19:44 The patient presents with abdominal pain in the lower abdomen. Onset: The jmm symptoms/episode began/occurred acutely, this morning. The symptoms do not radiate. Associated signs and symptoms: Pertinent positives: nausea and vomiting. The symptoms are described as achy, sharp. This is a 28 year old male with a history of anxiety that presents to the ED with lower abdominal pain and vomiting returning this morning. Patient was recently discharged from the hospital due to colitis. Patient denies drug or alcohol use. . Historical: - Allergies: 20:05 Neurontin; mg2 - Home Meds: 20:05 None [Active]; mg2 - PMHx: 20:05 Anxiety; Kidney stones; Back pain; mg2 - PSHx: 20:05 None; mg2 - Immunization history:: Flu vaccine status is unknown. - Social history:: Smoking status: unknown. - Ebola Screening: : No symptoms or risks identified at this time. ROS: 19:44 Constitutional: Negative for fever, chills, and weight loss, Cardiovascular: Negative jmm for chest pain, palpitations, and edema, Respiratory: Negative for shortness of breath, cough, wheezing, and pleuritic chest pain. 19:44 Abdomen/GI: Positive for abdominal pain, nausea and vomiting. Exam: 19:44 Head/Face: atraumatic. Chest/axilla: Normal chest wall appearance and motion. jmm Cardiovascular: Regular rate and rhythm. No edema appreciated Respiratory: Normal respirations, no respiratory distress appreciated 19:44 Skin: General appearance color normal MS/ Extremity: Moves all extremities, no obvious deformities appreciated, no edema noted to the lower extremities Neuro: Awake and alert, normal gait Psych: Behavior is normal, Mood is normal, Patient is cooperative and pleasant 19:44 Constitutional: The patient appears alert, awake, uncomfortable. 19:44 Abdomen/GI: Inspection: abdomen appears normal, Bowel sounds: normal, Palpation: soft, mild abdominal tenderness, in the right lower quadrant and left lower quadrant. Vital Signs: 19:31 BP 162 / 128; Pulse 107; Resp 20; Temp 99.6(TE); Pulse Ox 99% on R/A; Weight 63.5 kg ak1 (R); Height 5 ft. 11 in. (180.34 cm) (R); Pain 10/10; 21:14 BP 147 / 96; Pulse 65; Resp 18; Pulse Ox 100% on R/A; Pain 7/10; mg2 04/24 00:16 BP 161 / 91; Pulse 64; Resp 18; Pulse Ox 100% on R/A; Pain 3/10; jl3 04/23 19:31 Body Mass Index 19.53 (63.50 kg, 180.34 cm) ak1 MDM: 04/23 19:44 Patient medically screened. [facility] 04/24 00:25 Data reviewed: vital signs, nurses notes. Counseling: I had a detailed discussion with [facility] the patient and/or guardian regarding: the historical points, exam findings, and any diagnostic results supporting the discharge/admit diagnosis, lab results, radiology results, the need for further work-up and treatment in the hospital. ED course: Patient continues to vomiting after administration of antiemetics. I discussed the patient with Dr. Prater whom accepted admission. . 04/23 19:38 Order name: Basic Metabolic Panel [facility] 04/23 19:38 Order name: CBC with Diff [facility] 04/23 19:38 Order name: Creatinine for Radiology [facility] 04/23 19:38 Order name: Hepatic Function [facility] 04/23 19:38 Order name: Lipase [facility] 04/23 20:19 Order name: CBC with Automated Diff; Complete Time: 20:19 [facility] 04/23 19:45 Order name: CT Stone Protocol [facility] 04/23 20:41 Order name: CT; Complete Time: 20:47 [facility] 04/23 20:55 Order name: Creatinine (Radiology Only); Complete Time: 20:59 [facility] 04/23 21:05 Order name: Basic Metabolic Panel; Complete Time: 21:09 [facility] 04/23 21:05 Order name: Liver (Hepatic) Function; Complete Time: 21:09 [facility] 04/23 21:05 Order name: Lipase; Complete Time: 21:09 [facility] 04/23 21:14 Order name: Urine Dipstick--Ancillary (enter results) [facility] 04/23 21:52 Order name: Urine Dipstick-Ancillary; Complete Time: 21:53 [facility] 04/23 19:38 Order name: IV Saline Lock; Complete Time: 20:02 [facility] 04/23 19:38 Order name: Labs collected and sent; Complete Time: 20:02 [facility] 04/23 21:14 Order name: Urine Dipstick-Ancillary (obtain specimen); Complete Time: 21:16 [facility] 04/23 22:34 Order name: PO challenge; Complete Time: 23:31 [facility] Administered Medications: 04/23 20:01 Drug: Zofran 4 mg Route: IVP; Site: right forearm; mg2 20:01 Drug: Lactated Ringers Solution 1000 ml Route: IV; Rate: 1000 bolus; Site: right mg2 forearm; 20:02 Drug: morphine 4 mg Route: IVP; Site: right forearm; mg2 21:12 Drug: Valium 5 mg Route: IVP; Site: right forearm; mg2 22:29 Follow up: Response: No adverse reaction; Marked relief of symptoms mg2 22:28 Drug: Reglan 10 mg Route: IVP; Site: right forearm; mg2 23:31 Follow up: Response: No adverse reaction; Marked relief of symptoms mg2 22:28 Drug: NS 0.9% 500 ml Route: IV; Rate: bolus; Site: right forearm; mg2 23:31 Follow up: Response: No adverse reaction; IV Status: Completed infusion mg2 22:28 Drug: diphenhydrAMINE 12.5 mg Route: IVP; Site: right forearm; mg2 23:31 Follow up: Response: No adverse reaction; Marked relief of symptoms mg2 04/24 01:29 Drug: Zofran 4 mg Route: IVP; Site: right forearm; jl3 01:45 Follow up: Response: No adverse reaction; Marked relief of symptoms mg2 Disposition: 05:32 Co-signature as Attending Physician, Scott Reardon MD. rn Disposition: 04/24/18 00:26 Hospitalization ordered by Steffany Prater for Observation. Preliminary diagnosis is Intractable Vomiting. - Bed requested for Telemetry/MedSurg (observation). - Status is Observation. mg2 - Condition is Stable. - Problem is an acute exacerbation. - Symptoms are unchanged. UTI on Admission? No Signatures: Dispatcher [employer] Serena Alfaro, RN RN kl Kirill Hernandez PA PA [facility] Scott Reardon MD MD rn Martinez, Eric em1 Jaiden Hodge RN RN jl3 Yan Ray RN RN mg2 Corrections: (The following items were deleted from the chart) 01:04 00:26 Hospitalization Ordered by Steffany Prater MD for Observation. Preliminary kl diagnosis is Intractable Vomiting. Bed requested for Telemetry/MedSurg (observation). Status is Observation. Condition is Stable. Problem is an acute exacerbation. Symptoms are unchanged. UTI on Admission? No. jm 01:55 01:04 04/24/2018 00:26 Hospitalization Ordered by Steffany Prater MD for Observation. mg2 Preliminary diagnosis is Intractable Vomiting. Bed requested for Telemetry/MedSurg (observation). Status is Observation. Condition is Stable. Problem is an acute exacerbation. Symptoms are unchanged. UTI on Admission? No. kl
--- NOTE | 2018-04-24 00:27 | ER ---
Nurse's Notes [facility] Name: Pratik Seth Age: 28 yrs Sex: Male : 1990 Arrival Date: 04/23/2018 Time: 19:31 Bed 26 Private MD: Diagnosis: Intractable Vomiting Presentation: 04/23 19:31 Presenting complaint: Patient states: abd pain with vomiting. pt discharged from [address] today. Transition of care: patient was not received from another setting of care. Onset of symptoms is unknown. Care prior to arrival: None. 19:31 Method Of Arrival: Ambulatory [facility] 19:31 Acuity: FLORIAN 3 [facility] 20:05 Risk Assessment: Do you want to hurt yourself or someone else? Patient reports no mg2 desire to harm self or others. Initial Sepsis Screen: Does the patient meet any 2 criteria? No. Patient's initial sepsis screen is negative. Does the patient have a suspected source of infection? No. Patient's initial sepsis screen is negative. Historical: - Allergies: 20:05 Neurontin; mg2 - Home Meds: 20:05 None [Active]; mg2 - PMHx: 20:05 Anxiety; Kidney stones; Back pain; mg2 - PSHx: 20:05 None; mg2 - Immunization history:: Flu vaccine status is unknown. - Social history:: Smoking status: unknown. - Ebola Screening: : No symptoms or risks identified at this time. Screenin:04 Abuse screen: Denies threats or abuse. Denies injuries from another. Nutritional mg2 screening: No deficits noted. Tuberculosis screening: No symptoms or risk factors identified. Fall Risk IV access (20 points). Assessment: 20:02 General: Appears uncomfortable, Behavior is restless. Pain: Complains of pain in mg2 abdomen Pain does not radiate. Pain currently is 10 out of 10 on a pain scale. Quality of pain is described as aching, Pain began gradually, since 2 pm today. Neuro: Level of Consciousness is awake, alert, obeys commands, Oriented to person, place, time, situation. Cardiovascular: Capillary refill < 3 seconds Patient's skin is warm and dry. Respiratory: Airway is patent Respiratory effort is even, unlabored, Respiratory pattern is regular, symmetrical. GI: Bowel sounds present X 4 quads. Abd is soft and non tender. GI: Reports lower abdominal pain, upper abdominal pain, vomiting. : No signs and/or symptoms were reported regarding the genitourinary system. EENT: No signs and/or symptoms were reported regarding the EENT system. Derm: Skin is intact, is healthy with good turgor, Skin is pink, warm \T\ dry. normal. Musculoskeletal: No signs and/or symptoms reported regarding the musculoskeletal system. 04/24 01:16 Reassessment: Patient appears in no apparent distress at this time. Patient and/or jl3 family updated on plan of care and expected duration. Pain level reassessed. Patient is alert, oriented x 3, equal unlabored respirations, skin warm/dry/pink. advised for admission. patient agreed. LENNY Olivia received the report. Vital Signs: 04/23 19:31 BP 162 / 128; Pulse 107; Resp 20; Temp 99.6(TE); Pulse Ox 99% on R/A; Weight 63.5 kg ak1 (R); Height 5 ft. 11 in. (180.34 cm) (R); Pain 10/10; 21:14 BP 147 / 96; Pulse 65; Resp 18; Pulse Ox 100% on R/A; Pain 7/10; mg2 04/24 00:16 BP 161 / 91; Pulse 64; Resp 18; Pulse Ox 100% on R/A; Pain 3/10; jl3 04/23 19:31 Body Mass Index 19.53 (63.50 kg, 180.34 cm) ak1 ED Course: 04/23 19:31 Patient arrived in ED. ak1 19:31 Arm band placed on Patient placed in an exam room, on a stretcher, Patient notified of ak1 wait time. 19:32 Triage completed. ak1 19:37 Kirill Hernandez PA is PHCP. jmm 19:37 Scott Reardon MD is Attending Physician. jmm 19:54 Yan Ray, LENNY is Primary Nurse. mg2 20:02 No provider procedures requiring assistance completed. Inserted saline lock: 20 gauge mg2 in right forearm, using aseptic technique. Blood collected. by DIANE Almonte. 20:05 Patient has correct armband on for positive identification. mg2 20:26 CT completed. Patient moved to CT via wheelchair. Patient moved back from CT. kw1 04/24 00:26 Steffany Prater MD is Hospitalizing Provider. [facility] 01:45 Patient admitted, IV remains in place. mg2 Administered Medications: 04/23 20:01 Drug: Zofran 4 mg Route: IVP; Site: right forearm; mg2 20:01 Drug: Lactated Ringers Solution 1000 ml Route: IV; Rate: 1000 bolus; Site: right mg2 forearm; 20:02 Drug: morphine 4 mg Route: IVP; Site: right forearm; mg2 21:12 Drug: Valium 5 mg Route: IVP; Site: right forearm; mg2 22:29 Follow up: Response: No adverse reaction; Marked relief of symptoms mg2 22:28 Drug: Reglan 10 mg Route: IVP; Site: right forearm; mg2 23:31 Follow up: Response: No adverse reaction; Marked relief of symptoms mg2 22:28 Drug: NS 0.9% 500 ml Route: IV; Rate: bolus; Site: right forearm; mg2 23:31 Follow up: Response: No adverse reaction; IV Status: Completed infusion mg2 22:28 Drug: diphenhydrAMINE 12.5 mg Route: IVP; Site: right forearm; mg2 23:31 Follow up: Response: No adverse reaction; Marked relief of symptoms mg2 04/24 01:29 Drug: Zofran 4 mg Route: IVP; Site: right forearm; jl3 01:45 Follow up: Response: No adverse reaction; Marked relief of symptoms mg2 Outcome: 00:26 Decision to Hospitalize by Provider. m 01:46 Admitted to Med/surg accompanied by tech, via wheelchair, room 211, with chart, Report mg2 called to LENNY Olivia 01:46 Condition: stable 01:46 Instructed on the need for admit, Demonstrated understanding of instructions. 01:55 Patient left the ED. mg2 Signatures: Kirill Hernandez PA PA jmm Lowman, John RN RN jl3 Antonieta Brown RN RN [email or web address] Serena Prasad1 Yan Ray RN RN mg2
[2018-04-24] MEDS ORDERED: ONDANSETRON 4 MG/2 ML VIAL ONE (01:34)
[2018-04-24] MEDS ORDERED: MORPHINE 2 MG/ML SYR IV PRN (01:34)
[2018-04-24] MEDS ORDERED: ONDANSETRON 4 MG/2 ML VIAL IV PRN (01:34)
[2018-04-24] MEDS ORDERED: ACETAMINOPHEN 500 MG TAB PO PRN (01:34)
[2018-04-24 02:02] VITALS: BMI 17.2
[2018-04-24] MEDS: NA CHLORIDE 0.9% 1,000 ML IV SCH ×3 (02:13→21:16)
[2018-04-24 02:42] LABS: Urine Appearance CLEAR; Urine Bilirubin NEGATIVE (NEG); Urine Blood NEGATIVE (NEG); Urine Color YELLOW; Urine Glucose NEGATIVE (NEG); Urine Protein NEGATIVE (NEG); Urine Urobilinogen 0.2 mg/dL (0.2-1.0); Urine pH 7.5 (5.0-7.0)
[2018-04-24 02:43] LABS: Urine Microscopic Reflex NO UMIC
[2018-04-24] MEDS ORDERED: METHYLPREDNISOLONE 125 MG INJ IV ONE (02:58)
[2018-04-24] MEDS: clonazePAM 0.5 MG TAB PO SCH ×4 (03:25→21:16)
[2018-04-24 03:50] LABS: Barbiturates NEGATIVE (NEGATIVE); Benzodiazepines POSITIVE (NEGATIVE); Cocaine NEGATIVE (NEGATIVE); METHAMPHETAM NEGATIVE (NEGATIVE); Methadone NEGATIVE (NEGATIVE); Opiates NEGATIVE (NEGATIVE); Phencyclidine NEGATIVE (NEGATIVE); THC Cannibis POSITIVE (NEGATIVE)
[2018-04-24] MEDS ORDERED: HYDROMORPHONE HCL 1 MG/ML INJ IV PRN (07:07)
--- NOTE | 2018-04-24 10:24 | P.HP ---
Certification for Inpatient Patient admitted to: Observation With expected LOS: <2 Midnights Patient will require the following post-hospital care: None Practitioner: I am a practitioner with admitting privileges, knowledge of patient current condition, hospital course, and medical plan of care. Services: Services provided to patient in accordance with Admission requirements found in Title 42 Section 412.3 of the Code of Federal Regulations Patient History Date of Service: 04/24/18 Reason for admission: Intractable abdominal pain History of Present Illness: Patient is a 28-year-old gentleman who came into the hospital with abdominal discomfort. Pain was mainly in the lower abdomen and it was generalized diffusely. patient has been having quite a bit of pain for the last week. Patient has lost quite a bit of weight as well. On examination his clothes not fit and was so ever. He states he is not able to keep anything down. He does have a history of polysubstance abuse. Patient uses cannabis. Patient's drug screen revealed cocaine, benzodiazepine, and marijuana. patient has had CT scans which are unremarkable. Concern for other etiology of abdominal pain or withdrawals. Patient may need to be worked up a little bit more thoroughly. Allergies No Known Allergies Allergy (Verified 04/24/18 02:02) Home Medications: NK [No Home Meds] 04/21/18 - Past Medical/Surgical History Has patient received pneumonia vaccine in the past: No Diabetic: No -: wrist fracture -: TIA with aphasia (12/05) -: anxiety -: back pain -: kidney stones -: R wrist fracture -: appendectomy - Family History Mother Medical History: Cancer Notes: lung cx - Social History Smoking Status: Current every day smoker Alcohol use: Yes CD- Drugs: Yes Caffeine use: Yes Place of Residence: Home Review of Systems 10-point ROS is otherwise unremarkable Physical Examination - Vital Signs Temperature: 98.6 F Blood Pressure: 105/61 Pulse: 54 Respirations: 20 Pulse Ox (%): 99 - Physical Exam General: Alert, In no apparent distress, Oriented x3 HEENT: Atraumatic, PERRLA, Mucous membr. moist/pink, EOMI, Sclerae nonicteric Neck: Supple, 2+ carotid pulse no bruit, No LAD, Without JVD or thyroid abnormality Respiratory: Clear to auscultation bilaterally, Normal air movement Cardiovascular: Regular rate/rhythm, Normal S1 S2, No murmurs Gastrointestinal: Normal bowel sounds, Soft and benign, Non-distended, No rebound, Tenderness, Guarding Musculoskeletal: No clubbing, No swelling, No tenderness Integumentary: No rashes Neurological: Normal gait, Normal speech, Normal strength at 5/5 x4 extr, Normal tone, Normal affect Lymphatics: No axilla or inguinal lymphadenopathy - Studies Laboratory Data (last 24 hrs) 04/23/18 19:55: Creatinine 1.00 D 04/23/18 19:55: WBC 11.1 H, Hgb 13.7, Hct 39.1 L, Plt Count 341 04/23/18 19:55: Sodium 140, Potassium 4.1, BUN 13, Creatinine 1.00, Glucose 118 H, Total Bilirubin 0.6, AST 22, ALT 28, Alkaline Phosphatase 45, Lipase 103 Assessment & Plan - Problems (Diagnosis) (1) Abdominal pain Onset Date: 03/11/15 Current Visit: No Status: Acute Qualifiers: (2) Nausea & vomiting Onset Date: 03/11/15 Current Visit: No Status: Acute Qualifiers: - Plan Plan: 1. IV hydration 2. Pain control 3. Continue with antiemetics 4. Monitor labs closely 5. GI/DVT prophylaxis Discharge Plan: Home Plan to discharge in: 48 Hours - Advance Directives Does patient have a Living Will: No Does patient have a Durable POA for Healthcare: No - Code Status/Comfort Care Code Status Assessed: Yes Code Status: Full Code Critical Care: No Time Spent Managing PTS Care (In Minutes): 50
[2018-04-24] MEDS ORDERED: SODIUM CHLORIDE 0.9% 10ML INJ IV PRN (14:27)
[2018-04-24] MEDS: MORPHINE 2 MG/ML SYR IV PRN ×2 (17:06→23:18)
--- NOTE | 2018-04-24 19:36 | PN ---
Date of Progress Note: 04/24/2018 Subjective: The patient was seen and examined. Chart reviewed and case discussed with RN. The yana ent still reports abdominal pain. He denies marijuana use; however, is positive again on the UDS. T he patient was recently discharged on 04/22/2018 for similar symptoms. No nausea or vomiting. Medication List: Reviewed. Physical Examination: Vital Signs: Temperature 97.8, heart rate 99, blood pressure 125/72, respirations 18, O2 of 99% on r oom air. General: Awake, alert, oriented x3. Ill-appearing male, cachectic, BMI 17, in mild amount of pain a nd distress. CV: S1, S2. Regular rate and rhythm. Peripheral pulses present. Respiratory: Moving air well bilaterally. No wheezing or stridor. No use of accessory muscles. Gastrointestinal: Abdomen is soft. Pain out of proportion to exam. No rebound or guarding. Positi ve bowel sounds. Extremities: No clubbing, cyanosis, or edema. No calf tenderness. Neuro: Cranial nerves 2 through 12 intact grossly. No focal neurological deficit. Speech is normal . Strength is 5/5 in bilateral upper and lower extremities. Sensation intact to light touch. Skin: No rashes. Normal skin turgor. Psych: Mood is anxious. Affect is congruent with mood. Insight and judgment are poor. Laboratory Data: WBC 11.1, H and H 13.7/39.1, platelets 341. UDS positive for benzodiazepines and T HC. CT scan of the abdomen and pelvis personally reviewed, shows small bilateral calyceal stones wit hout hydronephrosis. Assessment: A 28-year-old male with: 1.Generalized abdominal pain, unclear etiology. The patient may possibly have ischemic disease. Th e patient already had a CT abdomen. We will obtain CT abdomen with angiogram in a.m. 2.Intractable nausea, vomiting, cyclical, likely related to marijuana abuse. The patient has been c ounseled extensively. 3.Polysubstance abuse with marijuana, last time was positive for cocaine and benzodiazepines are pos itive at this time. 4.Neutrophilic leukocytosis, likely secondary to above. Plan: GI and DVT prophylaxis. PPI and SCDs. Continue with n.p.o. status, surgical consultation, an giogram in a.m. IV pain medications will be adjusted. Continue IV fluids. Likely discharge in the next 24 hours depending on clinical response. SA/MODL Voice ID: [id number] Report ID: [id number]
[2018-04-24] MEDS: PANTOPRAZOLE 40 MG INJ IVP SCH (21:16)
[2018-04-24 23:05] VITALS: O2SAT 100
[2018-04-25] MEDS: MORPHINE 2 MG/ML SYR IV PRN ×2 (05:39→09:25)
[2018-04-25 06:08] LABS: Absolute Lymphocytes (CBC) 3.4 K/uL (0.7-4.9); Absolute Monocytes 0.7 K/uL (0.1-1.3); Absolute Neutrophil 3.8 K/uL (1.8-8.0); Eosinophils % 3.4 % (0-4.4); Hematocrit 36.4 % (39.6-49.0); Lymphocytes % 41.3 % (15.3-44.8); MCH 34.8 pg (27.0-35.0); MCV 98.9 fL (80-100); MPV 8.5 fL (7.6-11.3); Monocytes % 8.3 % (3.3-12.3); RBC Red Blood Cell Count 3.68 M/uL (4.33-5.43)
[2018-04-25 06:27] LABS: ALT/SGPT 23 U/L (12-78); AST/SGOT 13 U/L (15-37); Albumin 3.8 g/dL (3.4-5.0); Alkaline Phosphatase 38 U/L (45-117); BUN Blood Urea Nitrogen 10 mg/dL (7-18); Bicarbonate 26 mmol/L (21-32); Bilirubin Total 0.7 mg/dL (0.2-1.0); Glucose Level 124 mg/dL (74-106); Potassium 3.6 mmol/L (3.5-5.1); Protein, Total 6.5 g/dL (6.4-8.2); Sodium Level 140 mmol/L (136-145)
[2018-04-25] MEDS: NA CHLORIDE 0.9% 1,000 ML IV SCH (08:00)
[2018-04-25] MEDS: clonazePAM 0.5 MG TAB PO SCH ×2 (09:25→13:29)
[2018-04-25] MEDS: PANTOPRAZOLE 40 MG INJ IVP SCH (09:25)
[2018-04-25 12:48] VITALS: BP 119/72; TEMP 98
--- NOTE | 2018-04-25 16:58 | CON ---
Date of Consultation: 04/25/2018 Reason For Consultation: Abdominal pain. Brief History Of Present Illness: The patient is a 28-year-old gentleman, who has a histor y of abdominal pain beginning approximately he states 4 to 5 years ago. The abdominal pain is descri bed as difficulty with belching and sometimes following these inability to belch episodes he will hav e multiple episodes of vomiting which can last for several minutes, but it is vigorous aggressive vom iting by his description, and he will have multiple episodes [id number] of vomiting and he gets deh ydrated on these occasions. He states that over the past 4 to 5 months it has significantly worse cooper ving exacerbations approximately once a month occasionally more often. He has been in the hospital s everal times in the past week or two with similar complaints. Workup has not revealed any significan t pathology to explain this with the exception of vigorous vomiting associated with his marijuana usa ge as well as benzodiazepines. The pain is globally over his abdomen, but somewhat worse in the lowe r quadrants. He states he has lost about 20 pounds in the past year as well and has difficulty with maintaining nutrition. He does have a history of polysubstance abuse. He currently uses cannabis. The drug screen, however, revealed cocaine, benzodiazepines, and marijuana. He had an EGD in the [facility], which showed that he had a polyp of his colon, which was done approximately 4 to 5 years ago, EGD and colonoscopy, and he states he believes he may have had an ulcer at that time, but he is uncertain of the exact findings of the EGD and colonoscopy and cannot recall the specifics of it other than th e above stated findings. Past Medical History: Significant for wrist fracture, TIA with aphagia on 12/05, anxiety, back pain, kidney stones, right wrist fracture specifically. Past Surgical History: Includes appendectomy. Allergies: NO KNOWN DRUG ALLERGIES. Medications: None. Social History: He smokes every day. He uses alcohol recreationally and recreational drug use inclu chayo marijuana and as stated above he has a positive cocaine screen. Review of Systems: A 10-point review of systems other than HPI, denies on review of systems. Physical Examination: General: At the time of examination, his BMI is 17.3. He is awake, alert, and oriented. Vital Signs: Blood pressure of 121/71, pulse 64, respiratory rate 16, temperature 97.6. Psychiatric: He is appropriately conversive. HEENT: Normocephalic. Sclerae icteric. Mucous members moist. Oropharynx clear. Neck: Supple. No JVD. Chest: Normal expansion and excursion. Cardiovascular: Regular rate and rhythm. Pulmonary: Clear to auscultation bilaterally. Abdomen: Soft, somewhat scaphoid, nondistended. No rebound. No guarding. No focal peritonitis. N o peritoneal signs. No hernias appreciated. Extremities: No clubbing, cyanosis, or edema. Skin: Warm and dry. Laboratory Data: Reveals a white blood count of 8.3, hemoglobin 12.8, hematocrit 36.4, platelet coun t is 298. His sodium is 140, potassium 3.6, chloride 108 carbon dioxide 26, BUN 10, creatinine 0.9, glucose 124. Total bilirubin is 0.7, AST 13, ALT 23, alkaline phosphatase is 38. His lipase was 103 on admission. His UA was positive for benzos and THC on this particular tox screen. He had a CT sc an of the abdomen and pelvis, officially read as small bilateral calyceal stones without hydronephros is. Assessment And Plan: This is a 28-year-old male, who comes in with abdominal pain of uncertain etiol ogy. 1.IV fluid hydration. 2.Start clear liquid diet and advance as tolerated. When patient meets nutritional goals and pain i s improved, patient should be discharged. I have recommended the patient has outpatient EGD and poss ibly colonoscopy and continue workup as an outpatient should he meet his nutritional goals. Thank you for this interesting consult. NEFTALI/ANTONIETA Voice ID: [id number] Report ID: [id number]
--- NOTE | 2018-04-26 06:52 | DS ---
Date of Discharge: 04/25/2018 Consultants: Dr. Maxwell with General Surgery. Discharge Diagnoses: 1.Generalized abdominal pain. 2.Intractable nausea, vomiting, cyclical, likely related to marijuana abuse. 3.Polysubstance abuse with marijuana and cocaine, benzodiazepines. 4.Neutrophilic leukocytosis, resolved. Hospital Course: Patient is a 28-year-old male, who was recently discharged from the hospital with a bdominal pain, acute kidney injury, and dehydration, comes in again with similar symptoms of abdomina l pain. Patient's UDS again positive for marijuana as well as benzodiazepine, however, not cocaine t his time around. CT scan was repeated, which was negative. Patient was started on IV fluids, IV brittany n medications, and symptomatic treatment. Family was at the bedside. Treatment plan was explained. All questions were answered. Patient was again counseled regarding cyclical vomiting syndrome and a bdominal discomfort related to marijuana abuse. Patient voiced understanding; however, patient has a history of current use as displayed by these past 2 hospitalizations. Patient was then seen by Dr. Maxwell of General Surgery. He was able to tolerate a clear liquid diet. No surgical intervention w as planned. Patient was then recommended to be discharged. He was stable and tolerating a diet. No further nausea or vomiting. Again, counseled extensively. Patient is to establish care with PCP an d to return to the ER for worsening condition. Physical Examination: General: Awake, alert, oriented x3, not in any acute distress. Cardiovascular: S1, S2. No murmurs. Respiratory: Moving air well bilaterally. Gastrointestinal: Abdomen is soft, nontender, nondistended. Positive bowel sounds. No guarding or rigidity. Extremities: No clubbing, cyanosis, or edema. Neurologic: Nonfocal. SA/MODL Voice ID: [id number] Report ID: [id number]
== END 2018-04-25 14:08 | disposition home or self-care (01) ==
LOC: ER 19:18 → ERHOLD 04-24 00:27 → 2ND 04-24 01:39
PROVIDERS: ADMIT Hospitalist; ATTEND Hospitalist
DX: R10.84 Generalized abdominal pain (principal); G43.A1 Cyclical vomiting, in migraine, intractable; F12.10 Cannabis abuse, uncomplicated; F14.10 Cocaine abuse, uncomplicated; D72.828 Other elevated white blood cell count; Z86.73 Personal history of transient ischemic attack (TIA), and cerebral infarction without residual deficits
CPT/HCPCS: 36415; 74176; 76377; 80048; 80053; 80076; 80307; 81003; 83690; 85025; 87086; 87088; 96361; 96374; 96375; 99285; C9113; G0378; J1170; J2270; J2405; J2765; J2930; J3360; J7030

== ENCOUNTER 2018-06-07 23:40 | Observation (INO) | payer OTHER, SELFPAY ==
--- OUTSIDE RECORDS SUMMARY | 2018-06-07 23:42 | XMS REPORT ---
:1990 Author Organization eClinicalWorks Care Team Providers Name Role Phone Ike Mijares Provider Role Unavailable Allergies, Adverse Reactions, Alerts Substance Reaction Event Type Neurontin hives Drug Allergy Problems Problem Type Condition Code Onset Dates Condition Status Assessment Tobacco abuse Z72.0 Active Problem Polysubstance abuse F19.10 Active Problem DTs (delirium tremens) F10.231 Active Problem Anxiety F41.9 Active Assessment Polysubstance abuse F19.10 Active Assessment History of alcohol abuse Z87.898 Active Assessment Anxiety F41.9 Active Medications Medication Code Code Instructions Start End Status Dosage System Date Date BusPIRone HCl [facility] 10819271497 10 MG Orally Active 1 tablet Twice a day HydrOXYzine HCl [facility] 39559274479 25 MG Orally May 03, Active 1 tablet every 8 hrs 2018 as needed Results No Known Results Summary Purpose eClinicalWorks Submission
[2018-06-08] MEDS ORDERED: HYDROMORPHONE HCL 2 MG/ML inj ONE (00:28)
[2018-06-08] MEDS ORDERED: PANTOPRAZOLE 40 MG INJ ONE (00:28)
[2018-06-08] MEDS ORDERED: ONDANSETRON 4 MG/2 ML VIAL ONE (00:28)
[2018-06-08] MEDS ORDERED: NA CHLORIDE 0.9% 2,000 ML ONE (00:28)
[2018-06-08 00:43] LABS: ALT/SGPT 32 U/L (12-78); AST/SGOT 26 U/L (15-37); Albumin 5.4 g/dL (3.4-5.0); Alkaline Phosphatase 64 U/L (45-117); BUN Blood Urea Nitrogen 21 mg/dL (7-18); Bicarbonate 26 mmol/L (21-32); Bilirubin Direct 0.3 mg/dL (0-0.2); Bilirubin Total 0.9 mg/dL (0.2-1.0); Glucose Level 153 mg/dL (74-106); Lipase 71 U/L (73-393); Magnesium 2.2 mg/dL (1.8-2.4); NT PRO-BNP 122 pg/mL (<125); Potassium 3.5 mmol/L (3.5-5.1); Protein, Total 9.5 g/dL (6.4-8.2); Sodium Level 133 mmol/L (136-145); Troponin (Emerg Dept Use Only) < 0.02 ng/mL (0.0-0.045)
[2018-06-08 00:47] LABS: Absolute Lymphocytes (CBC) 2.6 K/uL (0.7-4.9); Absolute Monocytes 1.2 K/uL (0.1-1.3); Absolute Neutrophil 7.7 K/uL (1.8-8.0); Basophils % 0.6 % (0-1.3); Eosinophils % 0.2 % (0-4.4); Hematocrit 48.4 % (39.6-49.0); Lymphocytes % 22.3 % (15.3-44.8); MPV 8.5 fL (7.6-11.3); Monocytes % 10.6 % (3.3-12.3); Protime INR 1.05; RBC Red Blood Cell Count 5.07 M/uL (4.33-5.43)
[2018-06-08 00:49] LABS: Urine Blood 2+ (NEG); Urine Glucose NEGATIVE (NEG); Urine Protein 3+ (NEG); Urine pH 5.5 (5.0-7.0)
--- NOTE | 2018-06-08 01:18 | ER ---
Nurse's Notes [facility] Name: Pratik Seth Age: 28 yrs Sex: Male : 1990 Arrival Date: 06/07/2018 Time: 23:43 Bed 15 Private MD: Diagnosis: Vomiting;Abdominal tenderness;Essential (primary) hypertension Presentation: 06/07 23:52 Presenting complaint: Patient states: pt states that he has been vomiting for the last tl3 two or three days, no fever or diarrhea. States that his kidneys are hurting him. Transition of care: patient was not received from another setting of care. Onset of symptoms was June 04, 2018. Risk Assessment: Do you want to hurt yourself or someone else? Patient reports no desire to harm self or others. Initial Sepsis Screen: Does the patient meet any 2 criteria? No. Patient's initial sepsis screen is negative. Does the patient have a suspected source of infection? No. Patient's initial sepsis screen is negative. Care prior to arrival: None. 23:52 Method Of Arrival: Ambulatory tl3 23:52 Acuity: FLORIAN 3 tl3 Triage Assessment: 23:54 General: Appears distressed, uncomfortable, Behavior is cooperative, anxious. Pain: tl3 Complains of pain in back and abdomen Pain currently is 10 out of 10 on a pain scale. Historical: - Allergies: 23:54 Neurontin; tl3 - Home Meds: 23:54 None [Active]; tl3 - PMHx: 23:54 Anxiety; Back pain; Kidney stones; tl3 - PSHx: 23:54 None; tl3 - Immunization history:: Adult Immunizations up to date. - Social history:: Smoking status: Patient uses tobacco products, smokes one pack cigarettes per day. - Ebola Screening: : No symptoms or risks identified at this time. - Family history:: not pertinent. Screenin/16 00:30 Abuse screen: Denies threats or abuse. Denies injuries from another. Nutritional rr5 screening: No deficits noted. Tuberculosis screening: No symptoms or risk factors identified. Fall Risk IV access (20 points). Gait- Normal/Bed Rest/Wheelchair (0 pts) Total Ray Fall Scale indicates No Risk (0-24 pts). Assessment: 00:00 General: Appears uncomfortable, ill, Behavior is calm, cooperative, appropriate for rr5 age. Pain: Complains of pain in abdomen Pain radiates to flank area bilateral Pain currently is 10 out of 10 on a pain scale. Quality of pain is described as aching, sharp, Pain began gradually, Is intermittent. Neuro: Level of Consciousness is awake, alert, obeys commands, Oriented to person, place, time, situation, Appropriate for age. Neuro:. Cardiovascular: Capillary refill < 3 seconds Patient's skin is warm and dry. Respiratory: Airway is patent Respiratory effort is even, unlabored, Respiratory pattern is regular, symmetrical. GI: Abdomen is flat, Reports lower abdominal pain, upper abdominal pain, nausea, vomiting. : No signs and/or symptoms were reported regarding the genitourinary system. EENT: No signs and/or symptoms were reported regarding the EENT system. Derm: Skin is intact, Skin temperature is warm. Musculoskeletal: Capillary refill < 3 seconds, Range of motion: intact in all extremities. 01:00 Reassessment: Patient appears in no apparent distress at this time. No changes from rr5 previously documented assessment. Patient denies pain at this time. Patient states feeling better. Patient states symptoms have improved. 01:51 Reassessment: Patient appears in no apparent distress at this time. Patient is alert, rr5 oriented x 3, equal unlabored respirations, skin warm/dry/pink. asleep comfortably on bed Patient denies pain at this time. Patient states feeling better. Patient states symptoms have improved. 02:00 Reassessment: pain came back I'm hurting, pain score 10/10, facial grimace noted. ED rr5 provider informed. 02:37 Reassessment: Patient appears in no apparent distress at this time. Patient is alert, rr5 oriented x 3, equal unlabored respirations, skin warm/dry/pink. Patient states feeling better. Vital Signs: 06/07 23:54 BP 141 / 121; Pulse 123; Resp 22; Temp 98(O); Pulse Ox 97% ; tl3 06/08 01:00 BP 128 / 103; Pulse 88; Resp 17; Pulse Ox 100% ; rr5 01:52 BP 124 / 82; Pulse 89; Resp 17; Pulse Ox 99% ; rr5 03:00 BP 120 / 86; Pulse 83; Resp 17; Pulse Ox 99% ; rr5 ED Course: 06/07 23:43 Patient arrived in ED. am2 23:53 Triage completed. tl3 23:54 Arm band placed on left wrist. tl3 06/08 00:00 Patient has correct armband on for positive identification. Placed in gown. Bed in low rr5 position. Call light in reach. Side rails up X2. classroom monitor on. Pulse ox on. NIBP on. 00:01 Hever Ware MD is Attending Physician. rosie 00:04 Salvatore Rick RN is Primary Nurse. rr5 00:04 Inserted saline lock: 20 gauge in right forearm, using aseptic technique. Blood rr5 collected. 00:29 X-ray completed. Portable x-ray completed in exam room. Patient tolerated procedure kw well. 01:14 Steffany Prater MD is Hospitalizing Provider. [facility] 02:04 No provider procedures requiring assistance completed. Patient admitted, IV remains in rr5 place. intact, No redness/swelling at site. 02:59 CT completed. Patient tolerated procedure well. Patient moved to CT via wheelchair. Patient moved back from CT. Administered Medications: 00:25 Drug: NS 0.9% 1000 ml Route: IV; Rate: 1 bolus; Site: right forearm; rr5 01:08 Follow up: Response: No adverse reaction; IV Status: Completed infusion; IV Intake: rr5 1000ml 00:26 Drug: Zofran 4 mg Route: IVP; Site: right forearm; rr5 03:15 Follow up: Response: No adverse reaction rr5 00:27 Drug: ProTONIX 40 mg Route: IVP; Site: right forearm; rr5 03:15 Follow up: Response: No adverse reaction rr5 00:30 Drug: Dilaudid 1 mg Route: IVP; Site: right forearm; rr5 03:15 Follow up: Response: No adverse reaction rr5 01:09 Drug: NS 0.9% 1000 ml Route: IV; Rate: 1 bolus; Site: right forearm; rr5 02:25 Follow up: Response: No adverse reaction; IV Status: Completed infusion; IV Intake: rr5 1000ml 02:00 Drug: Zofran 4 mg Route: IVP; Site: right forearm; rr5 03:13 Follow up: Response: No adverse reaction rr5 02:02 Drug: Dilaudid 1 mg Route: IVP; Site: right forearm; rr5 03:14 Follow up: Response: No adverse reaction rr5 02:30 Drug: NS 0.9% 1000 ml Route: IV; Rate: 125 ml/hr; Site: right forearm; rr5 03:14 Follow up: Response: No adverse reaction; IV Status: Infusion continued upon admission rr5 Intake: 01:08 IV: 1000ml; Total: 1000ml. rr5 02:25 IV: 1000ml; Total: 2000ml. rr5 Outcome: 01:17 Decision to Hospitalize by Provider. rosie 03:12 Admitted to Tele accompanied by nurse, via wheelchair, room 406, with chart, Report rr5 called to angie GALVEZ 03:12 Condition: stable 03:12 Instructed on the need for admit. 03:33 Patient left the ED. rr5 Signatures: Hever Ware MD MD cha Hagler, Enedelia Godinez Amanda am2 Lowrey, Tammy, LENNY RN tl3 Salvatore Rick RN RN rr5 Corrections: (The following items were deleted from the chart) 02:27 02:05 Reassessment: pain came back I'm hurting, pain score 10/10, facial grimace noted. rr5 ED provider informed. rr5
--- NOTE | 2018-06-08 01:18 | EDPHYS ---
Physician Documentation [facility] Name: Pratik Seth Age: 28 yrs Sex: Male : 1990 Arrival Date: 06/07/2018 Time: 23:43 Bed 15 Private MD: ED Physician Hever Ware HPI: 06/08 00:14 This 28 yrs old Male presents to ER via Ambulatory with complaints of rosie dehydration. 00:14 The patient presents with abdominal pain. Onset: The symptoms/episode began/occurred 3 rosie day(s) ago. The patient presents with pain that is acute. The symptoms are located in the mid back area. Onset: The symptoms/episode began/occurred 3 day(s) ago. The pain does not radiate. Associated signs and symptoms: Pertinent positives: abdominal pain, nausea, vomiting. Modifying factors: The patient symptoms are alleviated by nothing, the patient symptoms are aggravated by nothing. Severity of symptoms: At their worst the symptoms were moderate, in the emergency department the symptoms are unchanged. Historical: - Allergies: 06/07 23:54 Neurontin; tl3 - Home Meds: 23:54 None [Active]; tl3 - PMHx: 23:54 Anxiety; Back pain; Kidney stones; tl3 - PSHx: 23:54 None; tl3 - Immunization history:: Adult Immunizations up to date. - Social history:: Smoking status: Patient uses tobacco products, smokes one pack cigarettes per day. - Ebola Screening: : No symptoms or risks identified at this time. - Family history:: not pertinent. ROS: 06/08 00:14 Constitutional: Negative for fever, chills, and weight loss, Eyes: Negative for injury, rosie pain, redness, and discharge, ENT: Negative for injury, pain, and discharge, Neck: Negative for injury, pain, and swelling, Respiratory: Negative for shortness of breath, cough, wheezing, and pleuritic chest pain, : Negative for injury, bleeding, discharge, and swelling, MS/Extremity: Negative for injury and deformity, Skin: Negative for injury, rash, and discoloration, Neuro: Negative for headache, weakness, numbness, tingling, and seizure. Cardiovascular: Positive for chest pain. Respiratory: Positive for cough, with no reported sputum. Abdomen/GI: Positive for abdominal pain, nausea and vomiting, abdominal cramps, of the epigastric area, right upper quadrant and left upper quadrant. Exam: 00:14 Constitutional: This is a well developed, well nourished patient who is awake, alert, rosie and in no acute distress. Head/Face: Normocephalic, atraumatic. Eyes: Pupils equal round and reactive to light, extra-ocular motions intact. Lids and lashes normal. Conjunctiva and sclera are non-icteric and not injected. Cornea within normal limits. Periorbital areas with no swelling, redness, or edema. ENT: Nares patent. No nasal discharge, no septal abnormalities noted. Tympanic membranes are normal and external auditory canals are clear. Oropharynx with no redness, swelling, or masses, exudates, or evidence of obstruction, uvula midline. Mucous membranes moist. Neck: Trachea midline, no thyromegaly or masses palpated, and no cervical lymphadenopathy. Supple, full range of motion without nuchal rigidity, or vertebral point tenderness. No Meningismus. Chest/axilla: Normal chest wall appearance and motion. Nontender with no deformity. No lesions are appreciated. Cardiovascular: Regular rate and rhythm with a normal S1 and S2. No gallops, murmurs, or rubs. Normal PMI, no JVD. No pulse deficits. Respiratory: Lungs have equal breath sounds bilaterally, clear to auscultation and percussion. No rales, rhonchi or wheezes noted. No increased work of breathing, no retractions or nasal flaring. Abdomen/GI: Soft, non-tender, with normal bowel sounds. No distension or tympany. No guarding or rebound. No evidence of tenderness throughout. Back: No spinal tenderness. No costovertebral tenderness. Full range of motion. Skin: Warm, dry with normal turgor. Normal color with no rashes, no lesions, and no evidence of cellulitis. MS/ Extremity: Pulses equal, no cyanosis. Neurovascular intact. Full, normal range of motion. Neuro: Awake and alert, GCS 15, oriented to person, place, time, and situation. Cranial nerves II-XII grossly intact. Motor strength 5/5 in all extremities. Sensory grossly intact. Cerebellar exam normal. Normal gait. Psych: Awake, alert, with orientation to person, place and time. Behavior, mood, and affect are within normal limits. Vital Signs: 06/07 23:54 BP 141 / 121; Pulse 123; Resp 22; Temp 98(O); Pulse Ox 97% ; tl3 06/08 01:00 BP 128 / 103; Pulse 88; Resp 17; Pulse Ox 100% ; rr5 01:52 BP 124 / 82; Pulse 89; Resp 17; Pulse Ox 99% ; rr5 03:00 BP 120 / 86; Pulse 83; Resp 17; Pulse Ox 99% ; rr5 MDM: 00:01 Patient medically screened. [facility] 00:17 Data reviewed: vital signs, nurses notes, lab test result(s), EKG, radiologic studies. [facility] 06/08 00:13 Order name: Basic Metabolic Panel [facility] 06/08 00:13 Order name: CBC with Diff [facility] 06/08 00:13 Order name: LFT's [facility] 06/08 00:13 Order name: Magnesium [facility] 06/08 00:13 Order name: NT PRO-BNP [facility] 06/08 00:13 Order name: PT-INR [facility] 06/08 00:13 Order name: Troponin (emerg Dept Use Only) [facility] 06/08 00:13 Order name: Lipase [facility] 06/08 00:19 Order name: Urine Dipstick--Ancillary (enter results) 06/08 00:34 Order name: UDS [facility] 06/08 00:49 Order name: Urine Dipstick-Ancillary; Complete Time: 01:07 EDAK 06/08 00:52 Order name: CBC with Automated Diff; Complete Time: 01:07 EDAK 06/08 00:53 Order name: Protime (+INR); Complete Time: 01:07 EDAK 06/08 00:54 Order name: Basic Metabolic Panel; Complete Time: 01:07 EDAK 06/08 00:13 Order name: XRAY Chest (1 view) [facility] 06/08 00:13 Order name: CT Abd/Pelvis - W/Contrast [facility] 06/08 00:54 Order name: Liver (Hepatic) Function; Complete Time: 01:07 EDAK 06/08 00:54 Order name: Troponin (Emerg Dept Use Only); Complete Time: 01:07 EDAK 06/08 00:54 Order name: NT PRO-BNP; Complete Time: 01:07 EDAK 06/08 00:54 Order name: Magnesium; Complete Time: 01:07 EDAK 06/08 00:54 Order name: Lipase; Complete Time: 01:07 EDAK 06/08 02:08 Order name: Urine Drug Screen [facility] 06/08 00:13 Order name: EKG; Complete Time: 00:14 [facility] 06/08 00:13 Order name: Cardiac monitoring; Complete Time: 01:06 [facility] 06/08 00:13 Order name: EKG - Nurse/Tech; Complete Time: 01:06 [facility] 06/08 00:13 Order name: IV Saline Lock; Complete Time: 00:45 [facility] 06/08 00:13 Order name: Labs collected and sent; Complete Time: 00:45 [facility] 06/08 00:13 Order name: O2 Per Protocol; Complete Time: 00:45 [facility] 06/08 00:13 Order name: O2 Sat Monitoring; Complete Time: 00:45 [facility] Administered Medications: 00:25 Drug: NS 0.9% 1000 ml Route: IV; Rate: 1 bolus; Site: right forearm; rr5 01:08 Follow up: Response: No adverse reaction; IV Status: Completed infusion; IV Intake: rr5 1000ml 00:26 Drug: Zofran 4 mg Route: IVP; Site: right forearm; rr5 03:15 Follow up: Response: No adverse reaction rr5 00:27 Drug: ProTONIX 40 mg Route: IVP; Site: right forearm; rr5 03:15 Follow up: Response: No adverse reaction rr5 00:30 Drug: Dilaudid 1 mg Route: IVP; Site: right forearm; rr5 03:15 Follow up: Response: No adverse reaction rr5 01:09 Drug: NS 0.9% 1000 ml Route: IV; Rate: 1 bolus; Site: right forearm; rr5 02:25 Follow up: Response: No adverse reaction; IV Status: Completed infusion; IV Intake: rr5 1000ml 02:00 Drug: Zofran 4 mg Route: IVP; Site: right forearm; rr5 03:13 Follow up: Response: No adverse reaction rr5 02:02 Drug: Dilaudid 1 mg Route: IVP; Site: right forearm; rr5 03:14 Follow up: Response: No adverse reaction rr5 02:30 Drug: NS 0.9% 1000 ml Route: IV; Rate: 125 ml/hr; Site: right forearm; rr5 03:14 Follow up: Response: No adverse reaction; IV Status: Infusion continued upon admission rr5 Disposition: 06/08/18 01:17 Hospitalization ordered by Steffany Prater for Inpatient Admission. Preliminary diagnosis are Vomiting, Abdominal tenderness, Essential (primary) hypertension. - Bed requested for Telemetry/MedSurg (Inpatient). - Status is Inpatient Admission. rr5 - Condition is Fair. - Problem is new. - Symptoms have improved. UTI on Admission? No Signatures: Dispatcher [employer] EDMS Hever Ware MD MD cha Garcia, Cindy, RN RN cg Eva Rhodes RN RN tl3 Salvatore Rick RN RN rr5 Corrections: (The following items were deleted from the chart) 02:02 01:17 Hospitalization Ordered by Steffany Prater MD for Inpatient Admission. Preliminary cg diagnosis is Vomiting; Abdominal tenderness; Essential (primary) hypertension. Bed requested for Telemetry/MedSurg (Inpatient). Status is Inpatient Admission. Condition is Fair. Problem is new. Symptoms have improved. UTI on Admission? No. rosie 03:33 02:02 06/08/2018 01:17 Hospitalization Ordered by Steffany Prater MD for Inpatient rr5 Admission. Preliminary diagnosis is Vomiting; Abdominal tenderness; Essential (primary) hypertension. Bed requested for Telemetry/MedSurg (Inpatient). Status is Inpatient Admission. Condition is Fair. Problem is new. Symptoms have improved. UTI on Admission? No. cg
[2018-06-08] MEDS ORDERED: MORPHINE 2 MG/ML SYR IV PRN ×2 (01:52→03:55)
[2018-06-08] MEDS ORDERED: ACETAMINOPHEN 500 MG TAB PO PRN (01:52)
[2018-06-08] MEDS ORDERED: NA CHLORIDE 0.9% 1,000 ML IV SCH (02:00)
[2018-06-08 02:08] LABS: Barbiturates NEGATIVE (NEGATIVE); Benzodiazepines NEGATIVE (NEGATIVE); Cocaine POSITIVE (NEGATIVE); METHAMPHETAM NEGATIVE (NEGATIVE); Methadone NEGATIVE (NEGATIVE); Opiates POSITIVE (NEGATIVE); Phencyclidine NEGATIVE (NEGATIVE); THC Cannibis POSITIVE (NEGATIVE)
[2018-06-08 03:45] VITALS: O2SAT 99
[2018-06-08] MEDS ORDERED: MORPHINE 4 MG/ML SYR ONE (04:21)
[2018-06-08] MEDS: ONDANSETRON 4 MG/2 ML VIAL IV PRN ×2 (04:27→08:25)
[2018-06-08 05:05] VITALS: BMI 16.9
--- NOTE | 2018-06-08 05:22 | P.HP ---
Certification for Inpatient Patient admitted to: Observation With expected LOS: <2 Midnights Patient will require the following post-hospital care: None Practitioner: I am a practitioner with admitting privileges, knowledge of patient current condition, hospital course, and medical plan of care. Services: Services provided to patient in accordance with Admission requirements found in Title 42 Section 412.3 of the Code of Federal Regulations Patient History Date of Service: 06/08/18 Reason for admission: Dehydration; intractable nausea and vomiting History of Present Illness: Patient is a 28-year-old gentleman who came into the hospital with persistent nausea and vomiting. Patient's pain is in the epigastric region. Patient has a history of polysubstance abuse. He has been doing marijuana yearly since 2014. Patient has had multiple episodes for intractable nausea and vomiting. However, he states he has not used any drugs since 's Day. I did speak to him about his urine drug screen. He states that he last used anything illegal on the 24 of May. He was doing well after the new , but he had flu-like symptoms 4-5 days later. Then a couple of days ago his nausea and vomiting started. He was seen by what he states was a clinic on [facility]. They did a blood test which showed that he may have what appeared like a stomach infection according to the patient. He was not feeling any better over the last 24hrs. He decided to come in to the emergency room for further evaluation. Allergies ketorolac [From Toradol] Allergy (Verified 06/08/18 03:56) Hives/Rash Home Medications: Buspirone HCl [Buspar] 5 mg PO TID #30 tab 04/25/18 - Past Medical/Surgical History Has patient received pneumonia vaccine in the past: No Diabetic: No -: wrist fracture -: TIA with aphasia (12/05) -: anxiety -: back pain -: kidney stones -: club foot -: R wrist fracture -: appendectomy - Family History Mother Medical History: Cancer Notes: lung cx - Social History Smoking Status: Former smoker Alcohol use: No CD- Drugs: Yes Caffeine use: Yes Place of Residence: Home Review of Systems 10-point ROS is otherwise unremarkable Physical Examination - Vital Signs Temperature: 98 F Blood Pressure: 120/86 Pulse: 83 Respirations: 17 Pulse Ox (%): 96 - Physical Exam General: Alert, In no apparent distress, Oriented x3 HEENT: Atraumatic, PERRLA, Mucous membr. moist/pink, EOMI, Sclerae nonicteric Neck: Supple, 2+ carotid pulse no bruit, No LAD, Without JVD or thyroid abnormality Respiratory: Clear to auscultation bilaterally, Normal air movement Cardiovascular: Regular rate/rhythm, Normal S1 S2, No murmurs Gastrointestinal: Normal bowel sounds, Soft and benign, Non-distended, No tenderness Musculoskeletal: No clubbing, No swelling, No tenderness Integumentary: No rashes Neurological: Normal gait, Normal speech, Normal strength at 5/5 x4 extr, Normal tone, Sensation intact, Cranial nerves 3-12 intact, Normal affect Lymphatics: No axilla or inguinal lymphadenopathy - Studies Laboratory Data (last 24 hrs) 06/08/18 00:05: PT 12.4, INR 1.05 06/08/18 00:05: WBC 11.6 H, Hgb 16.9, Hct 48.4, Plt Count 391 06/08/18 00:05: Sodium 133 L, Potassium 3.5, BUN 21 H, Creatinine 2.24 H, Glucose 153 H, Magnesium 2.2, Total Bilirubin 0.9, AST 26, ALT 32, Alkaline Phosphatase 64, Lipase 71 L Assessment & Plan - Problems (Diagnosis) (1) Polysubstance (excluding opioids) dependence Current Visit: Yes Status: Acute (2) Dehydration Current Visit: Yes Status: Acute (3) Abdominal pain Onset Date: 03/11/15 Current Visit: No Status: Acute Qualifiers: (4) Acute renal injury Onset Date: 04/22/18 Current Visit: No Status: Acute (5) Nausea & vomiting Onset Date: 03/11/15 Current Visit: No Status: Acute Qualifiers: - Plan 1. Continue with IV hydration 2. Continue with IV antiemetics 3. Continue with pain control 4. NPO; start clear liquids gradually 5. GI consultation as an outpatient 6. Stool cultures 7. GI and DVT prophylaxis Discharge Plan: Home Plan to discharge in: 48 Hours - Advance Directives Does patient have a Living Will: No Does patient have a Durable POA for Healthcare: No - Code Status/Comfort Care Code Status Assessed: Yes Code Status: Full Code Critical Care: No Time Spent Managing PTS Care (In Minutes): 50
[2018-06-08] MEDS ORDERED: MORPHINE 4 MG/ML SYR IV PRN (07:35)
[2018-06-08 08:06] VITALS: BP 126/95; TEMP 97.8
--- NOTE | 2018-06-08 08:32 | RAD REPORT ---
EXAM DESCRIPTION: CT - Abdomen Pelvis Wo Contrast - 06/08/2018 5:55 am CLINICAL HISTORY: Abdominal pain vomiting COMPARISON: April 2018 TECHNIQUE: Computed axial tomography of the abdomen and pelvis was obtained. IV was not requested. O ral contrast was given. Coronal reconstructions performed.A preliminary report was generated by [facility] and review prior to dictation All CT scans are performed using dose optimization technique as appropriate and may include automated exposure control or mA/KV adjustment according to patient size. FINDINGS: The evaluation of solid organs and vessels is limited secondary to the lack of contrast a dministration. A punctate bilateral renal calculi are present. Hydronephrosis is not present. Eight ureteral calculu s is not seen. A bladder calculus is not visualized Liver, spleen, pancreas and adrenals appear grossly normal The appendix is not seen. There is no evidence of diverticulitis. IMPRESSION: Tiny nonobstructing renal calculi
--- NOTE | 2018-06-08 08:33 | RAD REPORT ---
EXAM DESCRIPTION: Mere Single View06/08/2018 12:29 am CLINICAL HISTORY: Cough COMPARISON: February 2018 FINDINGS: The lungs appear clear of acute infiltrate. The heart is normal size IMPRESSION: No acute abnormalities displayed
--- NOTE | 2018-06-08 10:22 | EKG ---
Test Date: 2018-06-08 Test Time: 00:56:05 Port Engineer: RR MEASUREMENT RESULTS: Intervals: Rate: 81 ID: [id number] QRSD: 82 QT: 376 QTc: 436 [place]: P: 73 ID: [id number] QRS: 88 T: 66 INTERPRETIVE STATEMENTS: Normal sinus rhythm Normal ECG Compared to ECG 02/25/2018 02:22:35 Sinus arrhythmia no longer present Electronically Signed On 06-08-18 10:21:30 CUTTER FINISHER by Andrei Duffy
== END 2018-06-08 11:25 | disposition home or self-care (01) ==
LOC: ER 23:40 → ERHOLD 06-08 01:52 → 4TH 06-08 03:19
PROVIDERS: ADMIT Hospitalist; ATTEND Hospitalist
DX: F19.20 Other psychoactive substance dependence, uncomplicated (principal); E86.0 Dehydration; R10.9 Unspecified abdominal pain; N17.9 Acute kidney failure, unspecified; R11.2 Nausea with vomiting, unspecified; Z86.73 Personal history of transient ischemic attack (TIA), and cerebral infarction without residual deficits; Z87.891 Personal history of nicotine dependence; Z87.442 Personal history of urinary calculi
CPT/HCPCS: 36415; 71045; 74176; 80048; 80076; 80307; 81003; 83690; 83735; 83880; 84484; 85025; 85610; 93005; 96361; 96374; 96375; 99285; C9113; G0378; J1170; J2405; J7030

== ENCOUNTER 2018-07-24 13:48 | Emergency (ER) | payer OTHER ==
--- OUTSIDE RECORDS SUMMARY | 2018-07-24 13:50 | XMS REPORT ---
:1990 [facility] Address [address] [place] [address] Dr. Rivera [address] [place] [id number] Care Team Providers Name Role Phone Unavailable Unavailable Unavailable Problems This patient has no known problems. Allergies, Adverse Reactions, Alerts This patient has no known allergies or adverse reactions. Medications This patient has no known medications.
--- OUTSIDE RECORDS SUMMARY | 2018-07-24 13:50 | XMS REPORT ---
[...] Status Dosage System Date Date BusPIRone HCl [facility] [id number] 10 MG Orally Active 1 tablet Twice a day HydrOXYzine HCl [facility] [id number] 25 MG Orally May 03, Active 1 tablet every 8 hrs 2018 as needed Results No Known Results Summary Purpose eClinicalWorks Submission
[2018-07-24] MEDS ORDERED: MORPHINE 4 MG/ML SYR ONE ×2 (14:16→14:44)
[2018-07-24] MEDS ORDERED: NA CHLORIDE 0.9% 1,000 ML ONE ×2 (14:16→17:25)
[2018-07-24] MEDS ORDERED: ONDANSETRON 4 MG/2 ML VIAL ONE (14:16)
[2018-07-24 14:41] LABS: Basophils % 0.5 % (0-1.3); Eosinophils % 0.1 % (0-4.4); Hematocrit 45.3 % (39.6-49.0); Lymphocytes % 13.4 % (15.3-44.8); MPV 7.8 fL (7.6-11.3); Monocytes % 9.5 % (3.3-12.3); RBC Red Blood Cell Count 4.75 M/uL (4.33-5.43)
--- NOTE | 2018-07-24 14:41 | RAD REPORT ---
EXAM DESCRIPTION: CT - Stone Protocol - 07/24/2018 2:23 pm CLINICAL HISTORY: Abdominal pain, flank pain, kidney stone history COMPARISON: June 08, 2018 TECHNIQUE: Axial 5 mm thick images were obtained without oral or IV contrast. The [id number] span s the entirety of the system including uppermost abdomen and lung bases. All CT scans are performed using dose optimization technique as appropriate and may include automated exposure control or mA/KV adjustment according to patient size. FINDINGS: No hydronephrosis is present and no obstructing ureteral calculi. Multiple bilateral 2-5 m m calyx calculi present in each kidney. No suspicious renal masses. Isodense masses and pyelonephriti s are not excluded on a stone protocol CT scan. Urinary bladder is mostly contracted. No bladder calc eamon. Patient has several phleboliths in the lower pelvis. No significant adrenal finding. Imaged portions of the liver, spleen and pancreas show no suspicious findings on non-contrast imaging . No gallbladder or biliary tree abnormality identified. No suspicious bowel findings. No hernia, mass or bulky lymphadenopathy noted. No free air, free fluid or inflammatory stranding. No significant bony abnormality. IMPRESSION: No hydronephrosis. No obstructing calculi. Bilateral nonobstructing 2-5 mm calyx calculi. Isodense masses and pyelonephritis are not excluded on stone protocol technique.
[2018-07-24 14:51] LABS: Albumin 5.6 g/dL (3.4-5.0); Bilirubin Direct 0.3 mg/dL (0-0.2); Bilirubin Total 0.9 mg/dL (0.2-1.0); Potassium 3.8 mmol/L (3.5-5.1); Protein, Total 9.6 g/dL (6.4-8.2)
[2018-07-24 14:52] LABS: Absolute Lymphocytes (CBC) 2.7 K/uL (0.7-4.9); Absolute Monocytes 1.9 K/uL (0.1-1.3); Absolute Neutrophil 15.3 K/uL (1.8-8.0)
[2018-07-24 15:45] LABS: Platelet Estimate INCR
[2018-07-24 15:54] LABS: Blood Morphology Comment NOT SEEN (NOT SEEN)
[2018-07-24 15:55] LABS: Toxic Granulation PRESENT
[2018-07-24 16:58] LABS: Barbiturates NEGATIVE (NEGATIVE); Benzodiazepines POSITIVE (NEGATIVE); Cocaine NEGATIVE (NEGATIVE); METHAMPHETAM NEGATIVE (NEGATIVE); Methadone NEGATIVE (NEGATIVE); Opiates POSITIVE (NEGATIVE); Phencyclidine NEGATIVE (NEGATIVE); THC Cannibis POSITIVE (NEGATIVE)
[2018-07-24 17:03] LABS: Urine Blood TRACE (NEG); Urine Glucose NEGATIVE (NEG); Urine Protein 2+ (NEG)
[2018-07-24 17:26] LABS: Urine Bacteria <20 /HPF (NONE SEEN)
[2018-07-24 17:27] LABS: Urine Culture Reflex Order NOT NEEDED
[2018-07-24] MEDS ORDERED: PROMETHAZINE 25 MG/ML VIAL ONE (17:48)
--- NOTE | 2018-07-24 18:51 | ER ---
Nurse's Notes [facility] Name: Pratik Seth Age: 28 yrs Sex: Male : 1990 Arrival Date: 07/24/2018 Time: 13:49 Bed 25 Private MD: Diagnosis: Low back pain;Vomiting;Cannabis abuse Presentation: 07/24 14:00 Presenting complaint: Patient states: I get kidney stones a lot and I am in really bad la1 pain, it started yesterday and I have been vomiting. Transition of care: patient was not received from another setting of care. Onset of symptoms was July 24, 2018. Risk Assessment: Do you want to hurt yourself or someone else? Patient reports no desire to harm self or others. Initial Sepsis Screen: Does the patient meet any 2 criteria? No. Patient's initial sepsis screen is negative. Does the patient have a suspected source of infection? No. Patient's initial sepsis screen is negative. Care prior to arrival: None. 14:00 Method Of Arrival: Ambulatory la1 14:00 Acuity: FLORIAN 3 la1 Historical: - Allergies: 14:01 Neurontin; la1 - PMHx: 14:01 Anxiety; Back pain; Kidney stones; la1 - Immunization history:: Adult Immunizations up to date. - Social history:: Smoking status: Patient uses tobacco products, smokes one-half pack cigarettes per day. - Ebola Screening: : No symptoms or risks identified at this time. Screenin:00 Abuse screen: Denies threats or abuse. Denies injuries from another. Nutritional ca1 screening: No deficits noted. Tuberculosis screening: No symptoms or risk factors identified. Fall Risk Assessment: 14:00 General: Appears in no apparent distress. uncomfortable, ill, Behavior is calm, ca1 cooperative, appropriate for age. Pain: Complains of pain in abdomen Pain radiates to low back area, left low back and right low back Pain currently is 10 out of 10 on a pain scale. Pain began 1 day ago. Is continuous. Neuro: Level of Consciousness is awake, alert, obeys commands, Oriented to person, place, time, situation. Cardiovascular: Heart tones S1 S2 present Capillary refill < 3 seconds Patient's skin is warm and dry. Respiratory: Airway is patent Respiratory effort is even, unlabored, Respiratory pattern is regular, symmetrical, Breath sounds are clear bilaterally. GI: Abdomen is flat, non-distended, Bowel sounds present X 4 quads. Abd is soft X 4 quads Abdomen is tender to palpation X 4 quads. : Reports burning with urination, cramping. EENT: No signs and/or symptoms were reported regarding the EENT system. Derm: Skin is intact, is healthy with good turgor, Skin is pink, warm \T\ dry. Musculoskeletal: Circulation, motion, and sensation intact. Capillary refill < 3 seconds. 15:00 Reassessment: Patient appears in no apparent distress at this time. Patient and/or ca1 family updated on plan of care and expected duration. Pain level reassessed. Patient is alert, oriented x 3, equal unlabored respirations, skin warm/dry/pink. 16:00 Reassessment: Patient appears in no apparent distress at this time. Patient and/or ca1 family updated on plan of care and expected duration. Pain level reassessed. Patient is alert, oriented x 3, equal unlabored respirations, skin warm/dry/pink. Pt sleeping awakens easily to verbal stimuli. 16:43 Reassessment: Patient appears in no apparent distress at this time. Patient and/or ca1 family updated on plan of care and expected duration. Pain level reassessed. Patient is alert, oriented x 3, equal unlabored respirations, skin warm/dry/pink. 17:45 Reassessment: Patient appears in no apparent distress at this time. Patient and/or ca1 family updated on plan of care and expected duration. Pain level reassessed. Patient is alert, oriented x 3, equal unlabored respirations, skin warm/dry/pink. 18:48 Reassessment: Patient appears in no apparent distress at this time. Patient and/or ca1 family updated on plan of care and expected duration. Pain level reassessed. Patient is alert, oriented x 3, equal unlabored respirations, skin warm/dry/pink. Pt asleep, father at bedside. Vital Signs: 14:01 BP 150 / 100; Pulse 122; Resp 18; Temp 97.6; Pulse Ox 98% on R/A; Weight 63.5 kg; la1 Height 5 ft. 11 in. (180.34 cm); Pain 10/10; 15:00 BP 144 / 103; Pulse 87; Resp 19; Pulse Ox 100% ; Pain 10/10; ca1 16:00 BP 152 / 100; Pulse 72; Resp 19; Pulse Ox 100% on R/A; ca1 16:43 BP 159 / 102; Pulse 85; Resp 19; Pulse Ox 100% on R/A; ca1 17:45 BP 166 / 113; Pulse 82; Resp 19; Pulse Ox 100% on R/A; ca1 18:30 BP 146 / 88; Pulse 74; Resp 19; Pulse Ox 100% on R/A; ca1 14:01 Body Mass Index 19.53 (63.50 kg, 180.34 cm) la1 ED Course: 13:49 Patient arrived in ED. as 14:01 Triage completed. la1 14:01 Arm band placed on left wrist. la1 14:02 Rick Caraballo NP is PHCP. pm1 14:02 Andres Diaz MD is Attending Physician. pm1 14:05 Initial lab(s) drawn, by me, sent to lab. Inserted saline lock: 20 gauge in left jp3 antecubital area, using aseptic technique. Blood collected. 14:06 Allison Reinoso, RN is Primary Nurse. ca1 14:15 Pulse ox on. NIBP on. jp3 14:16 Bed in low position. Call light in reach. Side rails up X 1. Side rails up X2. Warm jp3 blanket given. Pillow given. 14:17 Basic Metabolic Panel Sent. jp3 14:17 CBC with Diff Sent. jp3 14:17 Creatinine for Radiology Sent. jp3 14:17 Hepatic Function Sent. jp3 14:17 Lipase Sent. jp3 14:[address] via stretcher. mw3 14:23 CT completed. Patient tolerated procedure well. Patient moved back from CT. mw3 14:24 CT Stone Protocol In Process Unspecified. EDMS 16:20 Urine collected: clean catch specimen, deng colored. ca1 19:05 No provider procedures requiring assistance completed. IV discontinued, intact, ca1 bleeding controlled, No redness/swelling at site. Pressure dressing applied. Administered Medications: 14:09 Drug: NS 0.9% 1000 ml Route: IV; Rate: 1000 ml; Site: left antecubital; la1 15:00 Follow up: IV Status: Completed infusion ca1 14:10 Drug: morphine 4 mg Route: IVP; Site: left antecubital; la1 14:40 Follow up: Response: No adverse reaction; Pain is unchanged, physician notified ca1 14:10 Drug: Zofran 4 mg Route: IVP; Site: left antecubital; la1 14:40 Follow up: Response: No adverse reaction; Nausea is decreased ca1 14:30 Drug: morphine 4 mg Route: IVP; Site: left antecubital; ca1 16:42 Follow up: Response: No adverse reaction; Pain is decreased ca1 17:06 Drug: NS 0.9% 1000 ml Route: IV; Rate: 1000 ml; Site: left antecubital; ca1 18:00 Follow up: Response: No adverse reaction; IV Status: Completed infusion ca1 Outcome: 18:51 Discharge ordered by MD. pm1 19:05 Discharged to home ambulatory. ca1 19:05 Condition: stable 19:05 Discharge instructions given to patient, Instructed on discharge instructions, follow up and referral plans. medication usage, Demonstrated understanding of instructions, follow-up care, medications, Prescriptions given X 3. 19:05 Patient left the ED. ca1 Signatures: Dispatcher [employer] EDMS Tanika Eric Lee, RN RN la1 Rick Caraballo NP THERMAL MOLDER pm1 Deloris Graf mw3 Alonzo Sage 3 Allison Reinoso RN RN ca1
--- NOTE | 2018-07-24 18:51 | EDPHYS ---
Physician Documentation [facility] Name: Pratik Seth Age: 28 yrs Sex: Male : 1990 Arrival Date: 07/24/2018 Time: 13:49 Bed 25 Private MD: ED Physician Andres Diaz HPI: 07/24 15:00 This 28 yrs old Male presents to ER via Ambulatory with complaints of pm1 Possible Kidney Stone. 15:00 The patient presents with pain that is acute, with no known mechanism of injury. pm1 15:00 The symptoms are located in the low back. The pain does not radiate. The problem was pm1 sustained possible kidney stone. Onset: The symptoms/episode began/occurred yesterday. Modifying factors: The patient symptoms are alleviated by nothing, the patient symptoms are aggravated by nothing. Associated signs and symptoms: Pertinent positives: nausea, vomiting, Pertinent negatives: abdominal pain, chest pain, constipation, dysuria, fever, numbness, tingling. Severity of symptoms: in the emergency department the symptoms are actually worse. The patient has experienced similar episodes in the past, a few times. The patient has not recently seen a physician. Historical: - Allergies: 14:01 Neurontin; la1 - PMHx: 14:01 Anxiety; Back pain; Kidney stones; la1 - Immunization history:: Adult Immunizations up to date. - Social history:: Smoking status: Patient uses tobacco products, smokes one-half pack cigarettes per day. - Ebola Screening: : No symptoms or risks identified at this time. ROS: 15:00 Constitutional: Negative for fever, chills, and weight loss, Eyes: Negative for injury, pm1 pain, redness, and discharge, ENT: Negative for injury, pain, and discharge, Neck: Negative for injury, pain, and swelling, Cardiovascular: Negative for chest pain, palpitations, and edema, Respiratory: Negative for shortness of breath, cough, wheezing, and pleuritic chest pain, Abdomen/GI: Negative for abdominal pain, nausea, vomiting, diarrhea, and constipation. 15:00 : Negative for injury, bleeding, discharge, and swelling, MS/Extremity: Negative for injury and deformity, Skin: Negative for injury, rash, and discoloration, Neuro: Negative for headache, weakness, numbness, tingling, and seizure. 15:00 Back: Positive for flank pain, bilaterally. Exam: 15:00 Constitutional: This is a well developed, well nourished patient who is awake, alert, pm1 and in no acute distress. Head/Face: Normocephalic, atraumatic. Eyes: Pupils equal round and reactive to light, extra-ocular motions intact. Lids and lashes normal. Conjunctiva and sclera are non-icteric and not injected. Cornea within normal limits. Periorbital areas with no swelling, redness, or edema. ENT: Nares patent. No nasal discharge, no septal abnormalities noted. Tympanic membranes are normal and external auditory canals are clear. Oropharynx with no redness, swelling, or masses, exudates, or evidence of obstruction, uvula midline. Mucous membranes moist. Neck: Trachea midline, no thyromegaly or masses palpated, and no cervical lymphadenopathy. Supple, full range of motion without nuchal rigidity, or vertebral point tenderness. No Meningismus. Chest/axilla: Normal chest wall appearance and motion. Nontender with no deformity. No lesions are appreciated. Cardiovascular: Regular rate and rhythm with a normal S1 and S2. No gallops, murmurs, or rubs. Normal PMI, no JVD. No pulse deficits. Respiratory: Lungs have equal breath sounds bilaterally, clear to auscultation and percussion. No rales, rhonchi or wheezes noted. No increased work of breathing, no retractions or nasal flaring. Abdomen/GI: Soft, non-tender, with normal bowel sounds. No distension or tympany. No guarding or rebound. No evidence of tenderness throughout. 15:00 Skin: Warm, dry with normal turgor. Normal color with no rashes, no lesions, and no evidence of cellulitis. MS/ Extremity: Pulses equal, no cyanosis. Neurovascular intact. Full, normal range of motion. 15:00 Back: pain, that is mild, of the left low back and right low back, normal spinal alignment noted. 15:00 Neuro: Orientation: is normal, Motor: is normal, moves all fours. Vital Signs: 14:01 BP 150 / 100; Pulse 122; Resp 18; Temp 97.6; Pulse Ox 98% on R/A; Weight 63.5 kg; la1 Height 5 ft. 11 in. (180.34 cm); Pain 10/10; 15:00 BP 144 / 103; Pulse 87; Resp 19; Pulse Ox 100% ; Pain 10/10; ca1 16:00 BP 152 / 100; Pulse 72; Resp 19; Pulse Ox 100% on R/A; ca1 16:43 BP 159 / 102; Pulse 85; Resp 19; Pulse Ox 100% on R/A; ca1 17:45 BP 166 / 113; Pulse 82; Resp 19; Pulse Ox 100% on R/A; ca1 18:30 BP 146 / 88; Pulse 74; Resp 19; Pulse Ox 100% on R/A; ca1 14:01 Body Mass Index 19.53 (63.50 kg, 180.34 cm) la1 MDM: 14:03 Patient medically screened. pm1 18:50 Data reviewed: vital signs. Data interpreted: Pulse oximetry: on room air is 100 %. pm1 Interpretation:. Counseling: I had a detailed discussion with the patient and/or guardian regarding: the historical points, exam findings, and any diagnostic results supporting the discharge/admit diagnosis, lab results, radiology results, the need for outpatient follow up, to return to the emergency department if symptoms worsen or persist or if there are any questions or concerns that arise at home. 18:50 ED course: Patient with negative CT examination and labs except for UDS and WBC. pm1 Patient reexamination of back negative for tenderness is walking without any difficulty. Patient's with elevated white count likely due to vomiting. . 07/24 14:03 Order name: Basic Metabolic Panel; Complete Time: 14:58 pm1 07/24 14:03 Order name: CBC with Diff; Complete Time: 16:01 pm1 07/24 14:03 Order name: Creatinine for Radiology; Complete Time: 14:58 pm1 07/24 14:03 Order name: Hepatic Function; Complete Time: 14:58 pm1 07/24 14:03 Order name: Lipase; Complete Time: 14:58 pm1 07/24 15:26 Order name: Manual Differential; Complete Time: 16:01 EDMS 07/24 14:03 Order name: CT Stone Protocol; Complete Time: 14:43 pm1 07/24 16:26 Order name: UDS; Complete Time: 17:01 pm1 07/24 16:28 Order name: Urine Dipstick--Ancillary (enter results); Complete Time: 17:04 eb 07/24 17:05 Order name: Urine Microscopic Only; Complete Time: 17:45 pm1 07/24 17:05 Order name: CPK; Complete Time: 17:45 pm1 07/24 14:03 Order name: IV Saline Lock; Complete Time: 14:17 pm1 07/24 14:03 Order name: Labs collected and sent; Complete Time: 14:17 pm1 07/24 14:03 Order name: Urine Dipstick-Ancillary (obtain specimen); Complete Time: 16:41 pm1 Administered Medications: 14:09 Drug: NS 0.9% 1000 ml Route: IV; Rate: 1000 ml; Site: left antecubital; la1 15:00 Follow up: IV Status: Completed infusion ca1 14:10 Drug: morphine 4 mg Route: IVP; Site: left antecubital; la1 14:40 Follow up: Response: No adverse reaction; Pain is unchanged, physician notified ca1 14:10 Drug: Zofran 4 mg Route: IVP; Site: left antecubital; la1 14:40 Follow up: Response: No adverse reaction; Nausea is decreased ca1 14:30 Drug: morphine 4 mg Route: IVP; Site: left antecubital; ca1 16:42 Follow up: Response: No adverse reaction; Pain is decreased ca1 17:06 Drug: NS 0.9% 1000 ml Route: IV; Rate: 1000 ml; Site: left antecubital; ca1 18:00 Follow up: Response: No adverse reaction; IV Status: Completed infusion ca1 Disposition: 07/25 11:59 Co-signature as Attending Physician, Andres Diaz MD. gs Disposition: 07/24/18 18:51 Discharged to Home. Impression: Low back pain, Vomiting, Cannabis abuse. - Condition is Stable. - Discharge Instructions: Back Pain, Adult, Nausea and Vomiting, Adult, What You Need To Know About Illegal Drug Use and Dependence, Youth. - Prescriptions for Zofran 4 mg Oral Tablet - take 1 tablet by ORAL route every 12 hours As needed; 20 tablet. Diclofenac Sodium 75 mg Oral Tablet Sustained Release - take 1 tablet by ORAL route 2 times per day; 30 tablet. Phenergan 25 mg Rectal Suppository - insert 1 suppository by RECTAL route every 6 hours As needed; 12 suppository. - Medication Reconciliation Form, Thank You Letter, Antibiotic Education, Prescription Opioid Use form. - Follow up: Emergency Department; When: As needed; Reason: Worsening of condition. Follow up: Private Physician; When: 2 - 3 days; Reason: Recheck today's complaints, Continuance of care, Re-evaluation by your physician. - Problem is new. - Symptoms have improved. Signatures: Dispatcher [employer] EDMS Pelon Wylie RN RN la1 Rick Carbaallo, CLIENT SERVICES SPECIALIST CLIENT SERVICES SPECIALIST pm1 Andres Diaz MD MD gs Acob, Allison RN RN ca1 Corrections: (The following items were deleted from the chart) 07/24 18:53 18:51 07/24/2018 18:51 Discharged to Home. Impression: Low back pain. Condition is pm1 Stable. Forms are Medication Reconciliation Form, Thank You Letter, Antibiotic Education, Prescription Opioid Use. Follow up: Emergency Department; When: As needed; Reason: Worsening of condition. Follow up: Private Physician; When: 2 - 3 days; Reason: Recheck today's complaints, Continuance of care, Re-evaluation by your physician. Problem is new. Symptoms have improved. pm1 18:54 18:53 07/24/2018 18:51 Discharged to Home. Impression: Low back pain; Vomiting. pm1 Condition is Stable. Discharge Instructions: Back Pain, Adult, Nausea and Vomiting, Adult. Prescriptions for Zofran 4 mg Oral Tablet - take 1 tablet by ORAL route every 12 hours As needed; 20 tablet, Diclofenac Sodium 75 mg Oral Tablet Sustained Release - take 1 tablet by ORAL route 2 times per day; 30 tablet, Phenergan 25 mg Rectal Suppository - insert 1 suppository by RECTAL route every 6 hours As needed; 12 suppository. and Forms are Medication Reconciliation Form, Thank You Letter, Antibiotic Education, Prescription Opioid Use. Follow up: Emergency Department; When: As needed; Reason: Worsening of condition. Follow up: Private Physician; When: 2 - 3 days; Reason: Recheck today's complaints, Continuance of care, Re-evaluation by your physician. Problem is new. Symptoms have improved. pm1 19:05 18:54 07/24/2018 18:51 Discharged to Home. Impression: Low back pain; Vomiting; ca1 Cannabis abuse. Condition is Stable. Discharge Instructions: Back Pain, Adult, Nausea and Vomiting, Adult. Prescriptions for Zofran 4 mg Oral Tablet - take 1 tablet by ORAL route every 12 hours As needed; 20 tablet, Diclofenac Sodium 75 mg Oral Tablet Sustained Release - take 1 tablet by ORAL route 2 times per day; 30 tablet, Phenergan 25 mg Rectal Suppository - insert 1 suppository by RECTAL route every 6 hours As needed; 12 suppository. and Forms are Medication Reconciliation Form, Thank You Letter, Antibiotic Education, Prescription Opioid Use. Follow up: Emergency Department; When: As needed; Reason: Worsening of condition. Follow up: Private Physician; When: 2 - 3 days; Reason: Recheck today's complaints, Continuance of care, Re-evaluation by your physician. Problem is new. Symptoms have improved. pm1
[2018-07-24 19:21] VITALS: TEMP 97.6
[2018-07-24 19:22] VITALS: O2SAT 100
[2018-07-24 19:27] VITALS: BP 146/88
== END 2018-07-24 19:05 | disposition home or self-care (01) ==
LOC: ER 13:48
DX: F12.10 Cannabis abuse, uncomplicated (principal); R11.10 Vomiting, unspecified; F17.210 Nicotine dependence, cigarettes, uncomplicated
CPT/HCPCS: 36415; 74176; 76377; 80048; 80076; 80307; 81003; 81015; 82550; 83690; 85025; 96361; 96374; 96375; 99284; J2405; J2550; J7030